=== PATIENT | female | born 1965 | race Caucasian/White ===

== ENCOUNTER 2017-06-11 17:50 | Emergency (ER) | payer MEDICAID ==
[~2017-06-11] VITALS: Ht 162.6 cm; Wt 123.4 kg
[2017-06-12 01:54] LABS: Basophils # (auto) 0 uL; Basophils % (auto) 0.5 % (0.0-2.0); Eosinophils # (auto) 0.2 uL; Eosinophils % (auto) 2.3 % (0.0-7.0); Hematocrit 46.3 % (36.0-46.0); Lymphocytes # (auto) 1.7 uL; Lymphocytes % (auto) 20.2 % (10.0-50.0); Mean Corpuscular Hemoglobin 32.9 pg (28.0-32.0); Mean Corpuscular Hgb Conc. 34.5 g/dL (32.0-36.0); Mean Corpuscular Volume 95.4 fL (80.0-100.0); Monocytes # (auto) 0.6 uL; Monocytes % (auto) 7.1 % (0.0-12.0); Neutrophils % (auto) 69.9 % (37.0-80.0); Nucleated Red Blood Cells % 0.1 %; Platelet Count (auto) 172 10^3/uL (140-450); Red Blood Cells 4.86 10^6/uL (4.0-5.20); Red Cell Distribution Width 13.7 % (11.8-14.3); White Blood Cell 8.6 10^3/uL (4.4-10.8)
[2017-06-12 02:11] LABS: Alanine Aminotransferase 34 U/L (13-56); Albumin 4.7 g/dL (3.4-5.0); Anion Gap 10 (5-15); Aspartate Aminotransferase 19 U/L (15-37); BUN/Creatinine Ratio 28.1; Blood Urea Nitrogen 18 mg/dL (7-18); Calcium 9.8 mg/dL (8.5-10.1); Carbon Dioxide 23 mmol/L (21-32); Chloride 106 mmol/L (98-107); GFR African American 125 mL/min; GFR Non-African American 103 mL/min; Glucose 110 mg/dL (74-106); Potassium 3.7 mmol/L (3.5-5.1); Sodium 139 mmol/L (136-145)
[2017-06-12 02:30] LABS: Alkaline Phosphatase 101 U/L (45-117); Bilirubin, Total 0.7 mg/dL (0.2-1.0); Total Protein 8.6 g/dL (6.4-8.2)
[2017-06-12] MEDS ORDERED: ONDANSETRON HCL 4 MG/2 ML VIAL IV ONE (04:00)
[2017-06-12] MEDS ORDERED: MORPHINE SULFATE 10 MG/ML INJ 1ML SDV IV ONE (04:00)
[2017-06-12 05:15] VITALS: BP 150/74
== END 2017-06-12 05:20 | disposition home or self-care (01) ==
LOC: ER 17:53
DX: S43.401A Unspecified sprain of right shoulder joint, initial encounter (principal); Z88.1 Allergy status to other antibiotic agents; E78.5 Hyperlipidemia, unspecified; I10 Essential (primary) hypertension; Z90.49 Acquired absence of other specified parts of digestive tract; W18.39XA Other fall on same level, initial encounter; Y93.89 Activity, other specified; Y92.89 Other specified places as the place of occurrence of the external cause; Y99.8 Other external cause status
CPT/HCPCS: 36415; 73030; 80053; 84484; 85025; 93005; 96374; 96375; 99285; J2270; J2405

== ENCOUNTER 2019-11-21 14:45 | Emergency (ER) | payer MEDICAID ==
[~2019-11-21] VITALS: Ht 162.6 cm; Wt 129.3 kg
[2019-11-21 16:03] VITALS: BP 146/78
== END 2019-11-21 16:09 | disposition home or self-care (01) ==
LOC: ER 14:45
DX: I10 Essential (primary) hypertension (principal); E78.5 Hyperlipidemia, unspecified; Z76.0 Encounter for issue of repeat prescription

== ENCOUNTER 2022-03-09 06:04 | Emergency (ER) | payer MEDICAID ==
[~2022-03-09] VITALS: Ht 160 cm; Wt 127.3 kg
[2022-03-09] MEDS ORDERED: KETOROLAC TROMETH 30 MG/ML 1ML VIAL IV ONE (09:00)
[2022-03-09] MEDS ORDERED: METOCLOPRAMIDE HCL 5MG/ml INJ 2ml VIAL IV ONE (09:00)
[2022-03-09 10:24] VITALS: BP 155/108
[2022-03-09] MEDS ORDERED: DEX4T PO (11:42)
== END 2022-03-09 11:55 | disposition left against medical advice (07) ==
LOC: ER 06:04
DX: M54.17 Radiculopathy, lumbosacral region (principal); M47.817 Spondylosis without myelopathy or radiculopathy, lumbosacral region; I10 Essential (primary) hypertension; E66.9 Obesity, unspecified; E78.5 Hyperlipidemia, unspecified; Z68.35 Body mass index [BMI] 35.0-35.9, adult; Z90.49 Acquired absence of other specified parts of digestive tract; Z88.2 Allergy status to sulfonamides
CPT/HCPCS: 72131; 73502; 96374; 96375; 99284; J1885; J2765

== ENCOUNTER 2024-07-04 08:51 | Emergency (ER) | payer MEDICAID ==
[~2024-07-04] VITALS: Ht 160 cm; Wt 110.9 kg
[~2024-07-04 08:51] MED LIST: ASPI81CH59 PO; ATOR20TA PO; AZEL0.054 OP; CHOL20007 PO; DEX4T PO; GABA-1250 PO; HYDR-4798 PO; HYDR25TA4 PO; HYDR50TA47 PO; LISI20TA56 PO; MELO15TA29 PO; METO-289 PO; OMEP-448 PO; SERT-160 PO
[2024-07-04 09:04] VITALS: BP 100/57; RESP 18; O2SAT 96
[2024-07-04 09:06] VITALS: PULSE 80
[2024-07-04 10:11] LABS: Basophils # (auto) 0 10 ^3/uL (0-0.2); Basophils % (auto) 0.4 % (0.0-2.0); Eosinophils # (auto) 0 10 ^3/uL (0-0.8); Hematocrit 45.4 % (36.0-46.0); Hemoglobin 15.8 g/dL (12.2-16.2); Lymphocytes # (auto) 1.4 10 ^3/uL (0.4-5.4); Lymphocytes % (auto) 16.7 % (10.0-50.0); Mean Corpuscular Hemoglobin 32.2 pg (28.0-32.0); Mean Corpuscular Hgb Conc. 34.8 g/dL (32.0-36.0); Mean Corpuscular Volume 92.5 fL (80.0-100.0); Monocytes # (auto) 0.4 10 ^3/uL (0-1.3); Monocytes % (auto) 4.6 % (0.0-12.0); Neutrophils # (auto) 6.8 10 ^3/uL (1.6-8.6); Neutrophils % (auto) 78.3 % (37.0-80.0); Nucleated Red Blood Cells % 0.1 %; Platelet Count (auto) 156 10^3/uL (140-450); Red Blood Cells 4.91 10^6/uL (4.0-5.20); Red Cell Distribution Width 14.3 % (11.8-14.3); White Blood Cell 8.6 10^3/uL (4.4-10.8)
[2024-07-04 10:20] LABS: Potassium 3.7 mmol/L (3.5-5.1)
[2024-07-04 10:21] LABS: Anion Gap 21 (5-15)
[2024-07-04 10:22] LABS: Calcium 8.9 mg/dL (8.7-10.4)
[2024-07-04 10:26] LABS: BUN/Creatinine Ratio 7.6 (10.0-20.0)
[2024-07-04 10:40] LABS: Blood Urea Nitrogen 73 mg/dL (9-23); Carbon Dioxide 13 mmol/L (20-31); Chloride 94 mmol/L (98-107); Glucose 145 mg/dL (74-106); Sodium 128 mmol/L (136-145)
--- NOTE | 2024-07-04 11:29 | ED.PDOC ---
GI ASSESSMENT HPI Comments 59 year old female presents to the ED with chief complaint of abdominal pain. Patient reports that she has been experiencing upper abdominal pain with associated N/V/D for the past week along with decreased urination for the past 4 days. Patient relays that she took [place] that she had at home with no relief in her pain noted. Patient denies any fever, chills, dizziness, chest pain, SOB, or dysuria. Chief Complaint: Abdominal Pain Time Seen by MD: 11:21 Primary Care Provider: bonilla Reviewed Notes: Nurses Notes, Medications, Allergies Allergies: Coded Allergies: Sulfa Antibiotics (Verified Allergy, Unknown, 04/03/16) Home Meds Active Scripts Dexamethasone (Decadron) 4 Mg Tb, 4 TAB PO b1d for 5 Days, #8 TAB Prov:SHUN GRAY MD 03/09/22 Information Source: Patient Mode of Arrival: Ambulatory Timing: Weeks Duration: Since onset Prehospital treatment: None Quality: Aching Vomitus: Watery Stool: Watery Severity: Moderate Recent: None Recent Hx of: None Pain Location: Epigastric Modifying Factors: Nothing Associated sign and symptoms: Nausea, Vomiting, Diarrhea, Abdominal Pain Past Medical History PAST MEDICAL HISTORY: Depression, High Lipids, HTN Surgical History: Cholecystectomy Surgical History (Other): Back surgery, Bilateral knee surgery, shoulder surgery EVENTS ADMINISTRATIVE ASSISTANT History: No Pertinent EVENTS ADMINISTRATIVE ASSISTANT History, Ectopic Family History Family History: Reviewed,noncontributory to illness, Unknown Social History Smoker: Non-Smoker Alcohol: Denies ETOH Use Drugs: Denies Drug Use Lives In: Home Constitutional: denies: chills, diaphoresis, fatigue, fever, malaise, sweats, weakness, others EENTM: denies: blurred vision, double vision, ear bleeding, ear discharge, ear drainage, ear pain, ear ringing, eye pain, eye redness, hearing loss, mouth pain, mouth swelling, nasal discharge, nose bleeding, nose congestion, nose pain, photophobia, tearing, throat pain, throat swelling, voice changes, others Respiratory: denies: cough, hemoptysis, orthopnea, SOB at rest, shortness of breath, SOB with excertion, stridor, wheezing, others Cardiovascular: denies: chest pain, dizzy spells, diaphoresis, Dyspnea on exertion, edema, irregular heart beat, left arm pain, lightheadedness, palpitations, PND, syncope, others Gastrointestinal: reports: abdominal pain, diarrhea, nausea, vomiting; denies: abdomen distended, blood streaked bowels, constipated, dysphagia, difficulty swallowing, hematemesis, melena, poor appetite, poor fluid intake, rectal bleeding, rectal pain, others Genitourinary: denies: abnormal vagina bleeding, burning, dyspareunia, dysuria, flank pain, frequency, hematuria, incontinence, pain, , vagina disc harge, urgency, others Neurological: denies: dizziness, fainting, headache, left sided numbness, left sided weakness, numbness, paresthesia, pre-existing deficit, right sided numbness, right sided weakness, seizure, speech problems, tingling, tremors, weakness, others Musculoskeletal: denies: back pain, gout, joint pain, joint swelling, muscle pain, muscle stiffness, neck pain, others Integumetry: denies: bruises, change in color, change in hair/nails, dryness, laceration, lesions, lumps, rash, wounds, others Allergic/Immunocompromised: denies: Difficulty Healing, Frequent Infections, Hives, Itching, others Hematologic/Lymphatic: denies: anemia, blood clots, easy bleeding, easy bruising, swollen glands, others Endocrine: denies: excessive hunger, excessive sweating, excessive thirst, excessive urination, flushing, intolerance to cold, intolerance to heat, unexplained weight gain, unexplained weight loss, others Psychiatric: denies: anxiety, bipolar disorder, depression, hopeless, panic disorder, schizophrenia, sleepless, suicidal, others All Other Systems: Reviewed and Negative Physical Exam General Appearance: No Apparent Distress, Normal HEENT: Normal ENT Inspection, PERRL/EOMI Neck: Full Range of Motion, Non-Tender, Normal, Normal Inspection Respiratory: Chest Non-Tender, Lungs Clear, No Accessory Muscle Use, No Respiratory Distress, Normal Breath Sounds Cardiovascular: No Edema, No JVD, No Murmur, No Gallop, Normal Peripheral Pulses, Regular Rate/Rhythm Breast Exam: Deferred Gastrointestinal: No Organomegaly, No Pulsatile Mass, Normal Bowel Sounds, Soft, Tenderness (Upper abdominal tenderness) Genitalia: Deferred Pelvic: Deferred Rectal: Deferred Extremities: No calf tenderness, Normal capillary refill, Normal inspection, Normal range of motion, Non-tender, No pedal edema Musculoskeletal : Apperance: Normal Neurologic: Alert, stitch bonding machine tender helper II-XII nml as Tested, No Motor Deficits, Normal Affect, Normal Mood, No Sensory Deficits Cerebellar Function: Normal Reflexes: Normal Skin: Dry, Normal Color, Warm Lymphatic: No Adenopathy Was a procedure done? Was a procedure done?: No X-Ray, Labs, Meds, VS Vital Signs Date Time Temp Pulse Resp B/P (MAP) Pulse Ox O2 Delivery O2 Flow Rate FiO2 07/04/24 09:06 80 07/04/24 09:04 98.5 83 18 100/57 (71) 96 Lab Test 07/04/24 09:51 07/04/24 09:01 Range/Units White Blood Count 8.6 4.4-10.8 10^3/uL Red Blood Count 4.91 4.0-5.20 10^6/uL Hemoglobin 15.8 12.2-16.2 g/dL Hematocrit 45.4 36.0-46.0 % Mean Corpuscular Volume 92.5 80.0-100.0 fL Mean Corpuscular Hemoglobin 32.2 H 28.0-32.0 pg Mean Corpuscular Hemoglobin Concent 34.8 32.0-36.0 g/dL Red Cell Distribution Width 14.3 11.8-14.3 % Platelet Count 156 140-450 10^3/uL Mean Platelet Volume 11.3 H 6.9-10.8 fL Neutrophils (%) (Auto) 78.3 37.0-80.0 % Lymphocytes (%) (Auto) 16.7 10.0-50.0 % Monocytes (%) (Auto) 4.6 0.0-12.0 % Eosinophils (%) (Auto) 0.0 0.0-7.0 % Basophils (%) (Auto) 0.4 0.0-2.0 % Neutrophils # (Auto) 6.8 1.6-8.6 10 ^3/uL Lymphocytes # (Auto) 1.4 0.4-5.4 10 ^3/uL Monocytes # (Auto) 0.4 0-1.3 10 ^3/uL Eosinophils # (Auto) 0 0-0.8 10 ^3/uL Basophils # (Auto) 0 0-0.2 10 ^3/uL Nucleated Red Blood Cells 0.1 % Sodium Level 128 L 136-145 mmol/L Potassium Level 3.7 3.5-5.1 mmol/L Chloride Level 94 L 98-107 mmol/L Carbon Dioxide Level 13 L 20-31 mmol/L Anion Gap 21 H 5-15 Blood Urea Nitrogen 73 H 9-23 mg/dL Creatinine 9.62 H 0.550-1.02 mg/dL Glomerular Filtration Rate Calc 4 >90 mL/min BUN/Creatinine Ratio 7.6 L 10.0-20.0 Serum Glucose 145 H 74-106 mg/dL Calcium Level 8.9 8.7-10.4 mg/dL POC Glucose 153 H 70-106 mg/dl Time of 1ST Reevaluation: 12:21 Reevaluation 1ST: Unchanged Patient Education/Counseling: Diagnosis, Treatment Family Education/Counseling: No Family Present Additional Information I reviewed the following notes from patient's past medical encounters: 03/09/22 for left hip pain The following tests were ordered, and results were reviewed by me: CBC, BMP, UA I reviewed and agreed with the following test results read by other providers: None Additional Information was gathered from interviewing the following independent historians: None I discussed treatment and results with medical personnel. Critical Care Note Critical Care Time?: No Stability Stability form required: No Heart Score Heart Score: Heart Score Response (Comments) Value History N/A 0 EKG N/A 0 Age N/A 0 Risk Factors N/A 0 Troponin N/A 0 Total 0 I personally scribed for NICANOR AMAYA MD ([email or web address]) on 07/04/24 at 11:29. Electronically submitted by Dash Billings ([email or web address]). NICANOR AMAYA MD Jul 04, 2024 11:29
[2024-07-04] MEDS ORDERED: SODIUM CHLORIDE 0.9% 1,000 ML IV ONE (14:30)
--- NOTE | 2024-07-05 01:36 | ECG ---
[facility] Test Date: 2024-07-04 Test Time: 09:06:32 Pat Name: KATHLEEN MAJOR Department: EMERGENCY Room: Gender: F Dock Attendant: : 1965 Requested By: NICANOR AMAYA Order Number: [id number] Reading MD: Measurements Intervals [place] Rate: 80 P: -80 HI: 145 QRS: 47 QRSD: 91 T: 110 QT: 380 QTc: 439 Interpretive Statements Ectopic atrial rhythm Ventricular premature complex Aberrant complex Repol abnrm suggests ischemia, lateral leads ST elevation, consider inferior injury Please click the below link to view image of tracing.
== END 2024-07-04 15:49 | disposition left against medical advice (07) ==
LOC: ER 08:51
DX: R10.10 Upper abdominal pain, unspecified (principal); R10.13 Epigastric pain; R11.2 Nausea with vomiting, unspecified; R19.7 Diarrhea, unspecified; I10 Essential (primary) hypertension; E78.5 Hyperlipidemia, unspecified; Z90.49 Acquired absence of other specified parts of digestive tract; Z88.2 Allergy status to sulfonamides
CPT/HCPCS: 36415; 80048; 82947; 82962; 85025; 93005

== ENCOUNTER 2024-07-04 21:38 | Inpatient (IN) | payer MEDICAID ==
[~2024-07-04] VITALS: Ht 160 cm; Wt 113.6 kg
--- NOTE | 2024-07-04 21:58 | ED.PDOC ---
GI ASSESSMENT HPI Comments 59 y.o female with PMHx of HTN and hyperlipidemia, presents to the ED via EMS for an initial complaint of nausea, vomiting and diarrhea that started one week ago. Per EMS, patient's family brought her into this ED earlier today to be seen but due to long wait times they LWOBS but decided to call 911 later on the day due to new onset generalized weakness. Patient reports she was unable to get herself up due to the weakness and developed generalized body aches today as well. Patient has not taken her BP medication for the past 3-4 days d/t pressure reading low at home. EMS reported blood pressure on scene as 75/45 with HR of 105. Patient denies any dysuria, hematuria, but does mention decrease urine o utput x 1 week. Patient is alert and oriented x 4. Chief Complaint: General Weakness Time Seen by MD: 21:50 Primary Care Provider: bonilla Reviewed Notes: Nurses Notes, Compensation Vice President Notes, Medications, Allergies Allergies: Coded Allergies: Sulfa Antibiotics (Verified Allergy, Unknown, 04/03/16) Home Meds Active Scripts Dexamethasone (Decadron) 4 Mg Tb, 4 TAB PO b1d for 5 Days, #8 TAB Prov:SHUN GRAY MD 03/09/22 Information Source: Patient, Emergency Med Personnel Mode of Arrival: EMS Timing: Hours Duration: Since onset Quality: None Vomitus: Hard Stool: Loose Severity: Moderate Recent: None Recent Hx of: None Pain Location: None Modifying Factors: Nothing Associated sign and symptoms: Nausea, Vomiting, Diarrhea Past Medical History PAST MEDICAL HISTORY: Depression, High Lipids, HTN Surgical History: Cholecystectomy SCOOPER History: No Pertinent SCOOPER History, Ectopic Family History Family History: Reviewed,noncontributory to illness, Unknown Social History Smoker: Non-Smoker Alcohol: Denies ETOH Use Drugs: Denies Drug Use Lives In: Home Constitutional: denies: chills, diaphoresis, fatigue, fever, malaise, sweats, weakness, others EENTM: denies: blurred vision, double vision, ear bleeding, ear discharge, ear drainage, ear pain, ear ringing, eye pain, eye redness, hearing loss, mouth pain, mouth swelling, nasal discharge, nose bleeding, nose congestion, nose pain, photophobia, tearing, throat pain, throat swelling, voice changes, others Respiratory: denies: cough, hemoptysis, orthopnea, SOB at rest, shortness of breath, SOB with excertion, stridor, wheezing, others Cardiovascular: denies: chest pain, dizzy spells, diaphoresis, Dyspnea on exertion, edema, irregular heart beat, left arm pain, lightheadedness, palpitations, PND, syncope, others Gastrointestinal: reports: diarrhea, nausea, vomiting; denies: abdomen distended, abdominal pain, blood streaked bowels, constipated, dysphagia, difficulty swallowing, hematemesis, melena, poor appetite, poor fluid intake, rectal bleeding, rectal pain, others Genitourinary: denies: abnormal vagina bleeding, burning, dyspareunia, dysuria, flank pain, frequency, hematuria, incontinence, pain, , vagina discharge, urgency, others Neurological: denies: dizziness, fainting, headache, left sided numbness, left sided weakness, numbness, paresthesia, pre-existing deficit, right sided numbness, right sided weakness, seizure, speech problems, tingling, tremors, weakness, others Musculoskeletal: denies: back pain, gout, joint pain, joint swelling, muscle pain, muscle stiffness, neck pain, others Integumetry: denies: bruises, change in color, change in hair/nails, dryness, laceration, lesions, lumps, rash, wounds, others Allergic/Immunocompromised: denies: Difficulty Healing, Frequent Infections, Hives, Itching, others Hematologic/Lymphatic: denies: anemia, blood clots, easy bleeding, easy bruising, swollen glands, others Endocrine: denies: excessive hunger, excessive sweating, excessive thirst, excessive urination, flushing, intolerance to cold, intolerance to heat, unexplained weight gain, unexplained weight loss, others Psychiatric: denies: anxiety, bipolar disorder, depression, hopeless, panic disorder, schizophrenia, sleepless, suicidal, others All Other Systems: Reviewed and Negative Physical Exam General Appearance: No Apparent Distress, Normal HEENT: Normal ENT Inspection, Pharynx Normal, TMs Normal Neck: Full Range of Motion, Non-Tender, Normal, Normal Inspection Respiratory: Chest Non-Tender, Lungs Clear, No Accessory Muscle Use, No Respiratory Distress, Normal Breath Sounds Cardiovascular: No Edema, No JVD, No Murmur, No Gallop, Normal Peripheral Pulses, Regular Rate/Rhythm Breast Exam: Deferred Gastrointestinal: No Organomegaly, Non Tender, No Pulsatile Mass, Normal Bowel Sounds, Soft Genitalia: Deferred Pelvic: Deferred Rectal: Deferred Extremities: No calf tenderness, Normal capillary refill, Normal inspection, Normal range of motion, Non-tender, No pedal edema Musculoskeletal : Apperance: Normal Neurologic: Alert, rn document improvement II-XII nml as Tested, No Motor Deficits, Normal Affect, Normal Mood, No Sensory Deficits Cerebellar Function: Normal Reflexes: Normal Skin: Dry, Normal Color, Warm Lymphatic: No Adenopathy Was a procedure done? Was a procedure done?: No GI differential Dx Differential Diagnosis: Urinary Obstruction, UTI, Dehydration, Diabetes/ DKA, Electrolyte Imbalance, Food Poisoning, Viral X-Ray, Labs, Meds, VS Vital Signs Date Time Temp Pulse Resp B/P (MAP) Pulse Ox O2 Delivery O2 Flow Rate FiO2 07/04/24 23:00 72 21 122/102 (109) 07/04/24 22:00 98.3 76 22 71/45 (54) 98 98.3 07/04/24 22:00 76 22 98 Room Air* 0 21 07/04/24 21:48 98.0 105 24 70/45 (53) 95 07/04/24 21:47 81 Lab Test 07/04/24 22:09 Range/Units White Blood Count 8.4 4.4-10.8 10^3/uL Red Blood Count 5.13 4.0-5.20 10^6/uL Hemoglobin 16.2 12.2-16.2 g/dL Hematocrit 47.5 H 36.0-46.0 % Mean Corpuscular Volume 92.5 80.0-100.0 fL Mean Corpuscular Hemoglobin 31.6 28.0-32.0 pg Mean Corpuscular Hemoglobin Concent 34.2 32.0-36.0 g/dL Red Cell Distribution Width 14.6 H 11.8-14.3 % Platelet Count 162 140-450 10^3/uL Mean Platelet Volume 10.9 H 6.9-10.8 fL Neutrophils (%) (Auto) 83.8 H 37.0-80.0 % Lymphocytes (%) (Auto) 11.4 10.0-50.0 % Monocytes (%) (Auto) 4.3 0.0-12.0 % Eosinophils (%) (Auto) 0.0 0.0-7.0 % Basophils (%) (Auto) 0.5 0.0-2.0 % Neutrophils # (Auto) 7.0 1.6-8.6 10 ^3/uL Lymphocytes # (Auto) 1.0 0.4-5.4 10 ^3/uL Monocytes # (Auto) 0.4 0-1.3 10 ^3/uL Eosinophils # (Auto) 0 0-0.8 10 ^3/uL Basophils # (Auto) 0 0-0.2 10 ^3/uL Nucleated Red Blood Cells 0.2 % Sodium Level 130 L 136-145 mmol/L Potassium Level 3.5 3.5-5.1 mmol/L Chloride Level 94 L 98-107 mmol/L Carbon Dioxide Level < 10 *L 20-31 mmol/L Anion Gap 26.32691 H 5-15 Blood Urea Nitrogen 81 *H 9-23 mg/dL Creatinine 10.63 *H 0.550-1.02 mg/dL Glomerular Filtration Rate Calc 4 >90 mL/min BUN/Creatinine Ratio 7.6 L 10.0-20.0 Serum Glucose 146 H 74-106 mg/dL Lactic Acid Level 2.1 *H 0.4-2.0 mmol/L Calcium Level 9.2 8.7-10.4 mg/dL Total Bilirubin 0.2 0.2-1.0 mg/dL Aspartate Amino Transferase (AST) 76 H 13-40 U/L Alanine Aminotransferase (ALT) 47 H 7-40 U/L Alkaline Phosphatase 75 46-116 U/L Total Protein 7.8 5.7-8.2 g/dL Albumin 5.0 H 3.2-4.8 g/dL Current Medications Medications (Trade) Dose Ordered Sig/Ralph Route Start Time Stop Time Status Last Admin Sodium Chloride 1,000 ml @ 1,000 mls/hr Q1H ONCE IV 07/04/24 22:00 07/04/24 22:59 DC 07/04/24 22:20 Ceftriaxone Sodium 50 ml @ 100 mls/hr ONCE ONCE IV 07/04/24 23:00 07/04/24 23:29 DC 07/04/24 23:02 Sodium Chloride 1,000 ml @ 125 mls/hr Q8H ONCE IV 07/04/24 23:15 07/05/24 07:14 07/04/24 23:15 Calcium Carbonate (Tums) 500 mg ONCE ONCE PO 07/04/24 23:30 07/04/24 23:31 DC 07/04/24 23:27 X-Ray, Labs, Meds, VS Comment Patient's labs show acute kidney failure Recommend nephrology consult in the morning Unable to obtain urine specimen, patient given Rocephin 1 g Pending follow up chemistry to check kidney function after 1 L bolus Blood pressure has not improved after initial NS bolus. Time of 1ST Reevaluation: 21:53 Reevaluation 1ST: Unchanged Patient Education/Counseling: Diagnosis, Treatment, Prognosis Family Education/Counseling: No Family Present Departure 1 Departure Time of Disposition: 23:53 Impression: Primary Impression: Acute kidney failure Qualified Codes: N17.9 - Acute kidney failure, unspecified Additional Impression: Septicemia Disposition: ADMITTED INPATIENT Condition: Guarded Critical Care Note Critical Care Time?: No Stability Stability form required: No I personally scribed for JUAN MANUEL ([facility]) on 07/04/24 at 21:58. Electronically submitted by Venus Caro ([facility]). JUAN MANUEL Jul 04, 2024 21:58
[2024-07-04 22:00] VITALS: PULSE 76; RESP 22; O2SAT 98
[2024-07-04] MEDS: SODIUM CHLORIDE 0.9% 1,000 ML IV ONE ×2 (22:20→23:15)
[2024-07-04 22:24] LABS: Basophils # (auto) 0 10 ^3/uL (0-0.2); Basophils % (auto) 0.5 % (0.0-2.0); Eosinophils # (auto) 0 10 ^3/uL (0-0.8); Hematocrit 47.5 % (36.0-46.0); Hemoglobin 16.2 g/dL (12.2-16.2); Lymphocytes % (auto) 11.4 % (10.0-50.0); Mean Corpuscular Hemoglobin 31.6 pg (28.0-32.0); Mean Corpuscular Hgb Conc. 34.2 g/dL (32.0-36.0); Mean Corpuscular Volume 92.5 fL (80.0-100.0); Monocytes # (auto) 0.4 10 ^3/uL (0-1.3); Monocytes % (auto) 4.3 % (0.0-12.0); Neutrophils % (auto) 83.8 % (37.0-80.0); Nucleated Red Blood Cells % 0.2 %; Platelet Count (auto) 162 10^3/uL (140-450); Red Blood Cells 5.13 10^6/uL (4.0-5.20); Red Cell Distribution Width 14.6 % (11.8-14.3); White Blood Cell 8.4 10^3/uL (4.4-10.8)
[2024-07-04 22:45] LABS: Alkaline Phosphatase 75 U/L (46-116); Anion Gap 26.00001 (5-15); BUN/Creatinine Ratio 7.6 (10.0-20.0); Calcium 9.2 mg/dL (8.7-10.4); Potassium 3.5 mmol/L (3.5-5.1)
[2024-07-04 22:46] LABS: Total Protein 7.8 g/dL (5.7-8.2)
[2024-07-04 22:47] LABS: Alanine Aminotransferase 47 U/L (7-40); Aspartate Aminotransferase 76 U/L (13-40); Bilirubin, Total 0.2 mg/dL (0.2-1.0); Chloride 94 mmol/L (98-107); Glucose 146 mg/dL (74-106); Lactic Acid w/Reflex 2.1 mmol/L (0.4-2.0); Sodium 130 mmol/L (136-145)
[2024-07-04 22:49] LABS: Blood Urea Nitrogen 81 mg/dL (9-23); Carbon Dioxide < 10 mmol/L (20-31)
[2024-07-04] MEDS: cefTRIAXone 1GM/50ML D5W 50 ML IV ONE (23:02)
[2024-07-04] MEDS: CALCIUM CARB 500 MG CHEW TAB PO ONE (23:27)
[2024-07-05] VITALS (59 sets, daily range): BP systolic 58–139; BP diastolic 25–73; PULSE 64–95; RESP 15–30; TEMP 98–98.3; O2SAT 88–97
[2024-07-05 00:43] LABS: Albumin 4.3 g/dL (3.2-4.8); Alkaline Phosphatase 64 U/L (46-116); Anion Gap 23 (5-15); BUN/Creatinine Ratio 7.8 (10.0-20.0)
[2024-07-05 00:44] LABS: Total Protein 6.8 g/dL (5.7-8.2)
[2024-07-05 00:48] LABS: Alanine Aminotransferase 41 U/L (7-40); Aspartate Aminotransferase 71 U/L (13-40); Bilirubin, Total < 0.2 mg/dL (0.2-1.0); Calcium 8.2 mg/dL (8.7-10.4); Carbon Dioxide 11 mmol/L (20-31); Chloride 97 mmol/L (98-107); Glucose 120 mg/dL (74-106); Sodium 131 mmol/L (136-145)
[2024-07-05] MEDS: PHENYLEPHRINE IV 250 ML IV SCH (00:50)
[2024-07-05 00:51] LABS: Blood Urea Nitrogen 80 mg/dL (9-23)
[2024-07-05] MEDS: SODIUM BICARB 8.4% 50Meq/50ml SYR Vial IV ONE (00:53)
[2024-07-05 00:57] LABS: Base Excess -14.5 mmol/L (-2.0-3.0)
--- NOTE | 2024-07-05 02:00 | DVH ---
Exam: CT CT AB PEL WO CON-NO ORAL OR IV History: flank pain Comparison Study: None Technique: Multidetector spiral CT of the abdomen was performed from lung bases to pubic symphysis. Imaging was performed without IV contrast. Axial, coronal and sagittal multiplanar reformats were ob tained from the axial data set by the technologist. Radiation Dose : 1. Abdomen/Pelvis: CTDIvol 26.4 mGy, DLP 1490 mGy*cm. Findings: Evaluation of solid organs is limited due to lack of intravenous contrast use. Lung Bases: Multifocal pneumonia throughout both lungs. Liver: The liver is normal in size. No focal lesions. Gallbladder and Biliary Tree: Unremarkable Spleen: Unremarkable Pancreas: The pancreas is grossly normal in appearance. Adrenal Glands: Unremarkable Kidneys: Kidneys are grossly normal without calculi or hydronephrosis. Bladder: Grossly unremarkable for degree of distention. Bowel: The stomach is grossly normal in appearance. Small bowel and colon are normal in caliber and d istribution. Normal appendix is visualized in the right lower quadrant without findings of appendici tis. Ascites: Absent Lymphadenopathy: No mesenteric, retroperitoneal or periportal lymphadenopathy. Abdominal Wall and Mesentery: Trace fat containing umbilical hernia.. Vasculature: The visualized abdominal aorta is normal in size and caliber. Evaluation of abdominal a nd pelvic vessels is limited due to lack of intravenous contrast. Pelvic Organs: Collapsed around a Abdullahi catheter. Musculoskeletal: No aggressive focal bony lesions, acute fractures or dislocation. Moderate degenerat sheela changes throughout the lumbar spine. IMPRESSION: 1. No acute abdominal or pelvic findings. Radiation optimization: All CT scans at this facility use at least one of these dose optimization caleb hniques: automated exposure control mA and/or kV adjustment per patient size (includes targeted exam s where dose is matched to clinical indication) or iterative reconstruction.
[2024-07-05 03:04] LABS: Urine Bacteria None Seen /hpf (None Seen)
[2024-07-05 03:34] LABS: Urine Blood 2+ /uL (Negative); Urine Clarity Ex.Turbid (Clear); Urine Color Yellow (Yellow); Urine Hyaline Cast MOD /lpf (0 - 2); Urine Mucus FEW (None Seen); Urine Protein, UAD 2+ (Negative); Urine Specific Gravity 1.021 (1.001-1.035); Urine Squamous Epithelial Cell FEW /hpf (<5); Urine Urobilinogen Normal (Negative); Urine WBC 42 /HPF (0-5); Urine pH 5.5 (5.0-9.0)
[2024-07-05] MEDS: SODIUM CHLORIDE 0.9% 1,000 ML IV ONE ×3 (04:38→18:25)
[2024-07-05] MEDS ORDERED: ONDANSETRON HCL 4 MG/2 ML VIAL IV PRN (04:45)
--- NOTE | 2024-07-05 04:53 | DVHHP2 ---
History of Present Illness Reason for Visit: Nausea and vomiting History of Present Illness 59-year-old female presents evaluation a one-week history of nausea vomiting and diarrhea. Patient reports worsening fatigue with generalized weakness she also reports decreased urine output. On arrival patient's blood pressure was in the 70s. Reports generalized body aches as well. No chest pain or palpitations. No shortness a breath. Past Medical History Hypertension, dyslipidemia and depression Past Surgical History Cholecystectomy Family History Noncontributory Smoke: No ALCOHOL: none Drugs: None Lives: with Family Review of Systems Review of Systems Review of systems are currently negative otherwise addressed in HPI. Allergies: Coded Allergies: Sulfa Antibiotics (Verified Allergy, Unknown, 04/03/16) Medications Current Medications Medications Dose Ordered Sig/Ralph Route Start Time Stop Time Status Last Admin Dose Admin Phenylephrine HCl 250 ml @ 30 mls/hr Q8H20M IV 07/05/24 00:15 07/05/24 00:50 30 MLS/HR Ceftriaxone Sodium 50 ml @ 100 mls/hr Q24H IV 07/05/24 23:00 Metronidazole 100 ml @ 100 mls/hr Q8HR IV 07/05/24 06:00 Exam Vital Signs Vital Signs Date Time Temp Pulse Resp B/P (MAP) Pulse Ox O2 Delivery O2 Flow Rate FiO2 07/05/24 04:30 72 19 94/45 (61) 93 07/04/24 22:00 98.3 98.3 07/04/24 22:00 Room Air* 0 21 Exam Gen: 59-year-old female in moderate distress, obese Skin: Warm, dry, normal color and texture, no rash. HEENT: Normocephalic atraumatic, mucous membranes moist and pink. Neck: Cervical and supraclavicular nodes normal without enlargement, trachea is midline, thyroid gland is normal without masses. Pulmonary: Clear to auscultation and percussion bilaterally. Cardiac: Regular rate and rhythm. No murmur Abdomen: Soft, nontender, nondistended, bowel sounds present all 4 quadrants, no guarding, no rigidity, no organomegaly. Extremities: No cyanosis, clubbing, no edema Neuro: Cranial nerves II through XII grossly intact, normal affect and speech, no focal motor deficits. Labs/Xrays ORDERING PHYSICIAN: JUAN MANUEL PROCEDURE(s): ABPL - CT AB PEL WO CON-NO ORAL OR IV REASON: flank pain ORDER NUMBER(s): [id number], ACCESSION NUMBER(s): [id number] Exam: CT CT AB PEL WO CON-NO ORAL OR IV History: flank pain Comparison Study: None Technique: Multidetector spiral CT of the abdomen was performed from lung bases to pubic symphysis. Imaging was performed without IV contrast. Axial, coronal and sagittal multiplanar reformats were obtained from the axial data set by the technologist. Radiation Dose : 1. Abdomen/Pelvis: CTDIvol 26.4 mGy, DLP 1490 mGy*cm. Findings: Evaluation of solid organs is limited due to lack of intravenous contrast use. Lung Bases: Multifocal pneumonia throughout both lungs. Liver: The liver is normal in size. No focal lesions. Gallbladder and Biliary Tree: Unremarkable Spleen: Unremarkable Pancreas: The pancreas is grossly normal in appearance. Adrenal Glands: Unremarkable Kidneys: Kidneys are grossly normal without calculi or hydronephrosis. Bladder: Grossly unremarkable for degree of distention. Bowel: The stomach is grossly normal in appearance. Small bowel and colon are normal in caliber and distribution. Normal appendix is visualized in the right lower quadrant without findings of appendicitis. Ascites: Absent Lymphadenopathy: No mesenteric, retroperitoneal or periportal lymphadenopathy. Abdominal Wall and Mesentery: Trace fat containing umbilical hernia.. Vasculature: The visualized abdominal aorta is normal in size and caliber. Evaluation of abdominal and pelvic vessels is limited due to lack of intravenous contrast. Pelvic Organs: Collapsed around a Abdullahi catheter. Musculoskeletal: No aggressive focal bony lesions, acute fractures or dislocatio n. Moderate degenerative changes throughout the lumbar spine. IMPRESSION: 1. No acute abdominal or pelvic findings. Radiation optimization: All CT scans at this facility use at least one of these dose optimization techniques: automated exposure control mA and/or kV adjustment per patient size (includes targeted exams where dose is matched to clinical indication) or iterative reconstruction. Labs Test 07/05/24 04:19 07/05/24 03:00 07/05/24 00:44 07/05/24 00:17 Range/Units Urine Color Yellow Yellow Urine Clarity Ex.turbid Clear Urine pH 5.5 5.0-9.0 Urine Specific [place] 1.021 1.001-1.035 Urine Protein 2+ H Negative Urine Ketones Negative Negative Urine Blood 2+ H Negative /uL Urine Nitrite Negative Negative Urine Bilirubin Negative Negative Urine Urobilinogen Normal Negative mg/dL Urine Leukocyte Esterase Negative Negative /uL Urine RBC 32 0 - 4 /hpf Urine Microscopic WBC 42 H 0-5 /HPF Urine Squamous Epithelial Cells Few <5 /hpf Urine Bacteria None seen None Seen /hpf Urine Hyaline Casts Mod 0 - 2 /lpf Urine Granular Casts Mod 0 /lpf Urine Mucus Few None Seen Urine Glucose Trace Normal mg/dL Blood Gas Specimen Type Arterial Blood Gas Sample Site Right radial Blood Gas Patient Temperature 37.0 Arterial Blood Date Drawn [id number] Arterial Blood pH 7.313 L 7.350-7.450 Arterial Blood Partial Pressure CO2 18.1 *L 32.0-45.0 mmHg Arterial Blood Partial Pressure O2 85.6 83.0-108.0 mmHg Arterial Blood HCO3 9.0 L 21.0-28.0 mmol/L Arterial Blood Oxygen Saturation 94.5 94.0-98.0 % Arterial Blood Base Excess -14.5 L -2.0-3.0 mmol/L Arterial Blood Oxyhemoglobin 93.8 L 94.0-98.0 % Arterial Blood Carboxyhemoglobin 0.4 L 0.5-1.5 % Arterial Blood Methemoglobin 0.3 0.0-1.5 % Connor Test Yes Blood Gas Total Hemoglobin 14.80 12.0-16.0 g/dL Blood Gas Liter Flow 2.00 Blood Gas Modality Nasal cannula FiO2 % 28.0 Blood Gas Critical Value Read Back Yes Blood Gas Notified Whom elizabeth Thomason Blood Gas Notified Time [id number] Blood Gas Notified By Electronic Scanner Operator regan mcnally Sodium Level 131 L 136-145 mmol/L Potassium Level 4.0 3.5-5.1 mmol/L Chloride Level 97 L 98-107 mmol/L Carbon Dioxide Level 11 L 20-31 mmol/L Anion Gap 23 H 5-15 Blood Urea Nitrogen 80 *H 9-23 mg/dL Creatinine 10.25 *H 0.550-1.02 mg/dL Glomerular Filtration Rate Calc 4 >90 mL/min BUN/Creatinine Ratio 7.8 L 10.0-20.0 Serum Glucose 120 H 74-106 mg/dL Lactic Acid Level 1.3 0.4-2.0 mmol/L Calcium Level 8.2 L 8.7-10.4 mg/dL Total Bilirubin < 0.2 L 0.2-1.0 mg/dL Aspartate Amino Transferase (AST) 71 H 13-40 U/L Alanine Aminotransferase (ALT) 41 H 7-40 U/L Alkaline Phosphatase 64 46-116 U/L Creatine Kinase 493 H 34-145 U/L Total Protein 6.8 5.7-8.2 g/dL Albumin 4.3 3.2-4.8 g/dL Test 07/04/24 22:09 Range/Units White Blood Count 8.4 4.4-10.8 10^3/uL Red Blood Count 5.13 4.0-5.20 10^6/uL Hemoglobin 16.2 12.2-16.2 g/dL Hematocrit 47.5 H 36.0-46.0 % Mean Corpuscular Volume 92.5 80.0-100.0 fL Mean Corpuscular Hemoglobin 31.6 28.0-32.0 pg Mean Corpuscular Hemoglobin Concent 34.2 32.0-36.0 g/dL Red Cell Distribution Width 14.6 H 11.8-14.3 % Platelet Count 162 140-450 10^3/uL Mean Platelet Volume 10.9 H 6.9-10.8 fL Neutrophils (%) (Auto) 83.8 H 37.0-80.0 % Lymphocytes (%) (Auto) 11.4 10.0-50.0 % Monocytes (%) (Auto) 4.3 0.0-12.0 % Eosinophils (%) (Auto) 0.0 0.0-7.0 % Basophils (%) (Auto) 0.5 0.0-2.0 % Neutrophils # (Auto) 7.0 1.6-8.6 10 ^3/uL Lymphocytes # (Auto) 1.0 0.4-5.4 10 ^3/uL Monocytes # (Auto) 0.4 0-1.3 10 ^3/uL Eosinophils # (Auto) 0 0-0.8 10 ^3/uL Basophils # (Auto) 0 0-0.2 10 ^3/uL Nucleated Red Blood Cells 0.2 % Assessment/Plan Assessment/Plan Assessment Acute renal failure Possible rhabdomyolysis Sepsis Mild troponin elevation, demand ischemia Plan Admit the patient to telemetry to the hospitalist Nephrology consultation Echocardiogram pending Kidney ultrasound pending Resume home medications Continue treatment per orders. Total critical care time excluding procedures performed this 50 minutes. Plan discussed with: Patient My Orders Orders - PADMA ROE Procedure Category Date Status Time Admit ADMIT 07/04/24 Transmitted 23:56 Phenylephrine Iv PHA 07/05/24 In Process (Phenylephrine/Ns) 00:15 Transfer Orders XFER 07/05/24 Transmitted 00:15 Ceftriaxone 1gm/50ml PHA 07/05/24 In Process D5w (Rocephin) 23:00 Metronidazole PHA 07/05/24 In Process 500mg/100ml (Flagyl 06:00 Chest Xray 1 View XY 07/05/24 Taken 03:58 Sodium Chloride 0.9% PHA 07/05/24 In Process 04:00 B-Type Natriuretic LAB 07/05/24 In Process Peptide 03:58 Troponin-I Hs LAB 07/05/24 In Process 04:58 Troponin-I Hs LAB 07/05/24 Logged 06:58 Stool Bacterial HERVE 07/05/24 Logged Culture 04:07 Clostridium Difficile HERVE 07/05/24 Logged Toxin 04:07 Kidney US 07/05/24 Logged 04:18 *Dr. [facility] CONS 07/05/24 Transmitted -[place] 04:18 Echo 2d Mode Cardiac US 07/05/24 Logged DOP 04:18 Date of Service: Jul 04, 2024 Billing Provider: PADMA ROE Common Visit Codes: 13400-[id number] CARE 30-74 MIN PADMA ROE Jul 05, 2024 04:53
--- NOTE | 2024-07-05 05:01 | DVH ---
CHEST RADIOGRAPH Indication: sob Technique: Single frontal view of the chest was obtained Comparison: None FINDINGS: Lines and Tubes: None Lungs: Left basilar opacity noted. Pleura: No effusion. No pneumothorax. Cardiomediastinal contours: Unremarkable Bones: No acute osseous abnormality. IMPRESSION: 1. Left basilar opacity which may reflect atelectasis or pneumonia.
--- NOTE | 2024-07-05 07:19 | DVH ---
INDICATION: Renal failure TECHNIQUE: Multiple real-time sonographic images of the kidneys and bladder were obtained. COMPARISON: None FINDINGS: The right kidney measures 10 cm in length, which is normal in size. There is normal echogenicity of t he right kidney. No hydronephrosis. The left kidney measures 11 cm in length, which is normal in size. There is normal echogenicity of th e left kidney. No hydronephrosis. No large intraluminal masses are seen in the bladder. IMPRESSION: 1. Normal sonographic appearance of the kidneys. No hydronephrosis.
[2024-07-05] MEDS: ASPirin 81 mg TAB PO SCH (09:20)
[2024-07-05] MEDS: ACETAMINOPHEN 325 MG TAB PO PRN (09:21)
--- NOTE | 2024-07-05 10:06 | ECG ---
[facility] Test Date: 2024-07-04 Test Time: 21:47:33 Pat Name: KATHLEEN MAJOR Department: ER Room: [address] [place] [address] Gender: F Ware[employer] Order Puller: MELLISA : 1965 Requested By: JUAN MANUEL Order Number: [id number] Reading MD: Thad Sheridan Measurements Intervals [place] Rate: 81 P: -45 NH: 143 QRS: 49 QRSD: 98 T: 144 QT: 396 QTc: 460 Interpretive Statements Sinus or ectopic atrial rhythm Repol abnrm suggests ischemia, lateral leads Baseline wander in lead(s) I,III,aVL Electronically Signed On 07-07-2024 10:49:08 PST by Thad Sheridan Please click the below link to view image of tracing.
--- NOTE | 2024-07-05 10:10 | DVHINCON2 ---
Date of service: Jul 05, 2024 Referring Physician Sanket Gonzalez, nurse practitioner Reason for Consultation Acute kidney injury History of Present Illness Patient is 59-year-old female obese with past medical history significant for Depression, High Lipids, and HTN is admitted for generalized weakness associated with nausea vomiting and diarrhea for one-week. On admission patient found to have elevated BUN and creatinine nephrology is consulted for acute Past Medical History PAST MEDICAL HISTORY: Depression, High Lipids, HTN Past Surgical History Surgical History: Cholecystectomy Allergies: Coded Allergies: Sulfa Antibiotics (Verified Allergy, Unknown, 04/03/16) Home Meds Active Scripts Dexamethasone (Decadron) 4 Mg Tb, 4 TAB PO b1d for 5 Days, #8 TAB Prov:SHUN GRAY MD 03/09/22 Current Medications Current Medications Medications (Trade) Dose Ordered Sig/Ralph Route PRN Reason Start Time Stop Time Status Last Admin Phenylephrine HCl 250 ml @ 30 mls/hr Q8H20M IV 07/05/24 00:15 07/05/24 08:12 Ceftriaxone Sodium 50 ml @ 100 mls/hr Q24H IV 07/05/24 23:00 Metronidazole 100 ml @ 100 mls/hr Q8HR IV 07/05/24 06:00 Ondansetron HCl (Zofran) 4 mg Q4HP PRN IV NAUSEA / VOMITING 07/05/24 04:45 07/05/24 13:58 DC Acetaminophen (Tylenol Tablet) 650 mg Q6HP PRN PO PAIN SCALE 1-3 OR TEMP>100.4 07/05/24 04:45 07/05/24 13:31 DC 07/05/24 09:21 Atorvastatin Calcium (Lipitor) 20 mg HS PO 07/05/24 22:00 Aspirin 162 mg DAILY PO 07/05/24 10:00 07/05/24 09:20 Sodium Bicarbonate 100 ml/Sodium Chloride 1,100 ml @ 120 mls/hr Q9H10M IV 07/05/24 10:00 07/05/24 11:56 Morphine Sulfate 1 mg Q4HPRN PRN IV SEVERE PAIN (7-10 PAIN SCALE) 07/05/24 13:30 Acetaminophen/ Hydrocodone Bitart ([place] 5/325MG Tab) 1 tab Q6HPRN PRN PO MODERATE PAIN (4-6 PAIN SCALE) 07/05/24 13:30 Ondansetron HCl (Zofran) 4 mg Q6HP PRN IV NAUSEA / VOMITING 07/05/24 13:30 Albuterol (Ventolin Medneb) 2.5 mg Q4HPRN PRN NEB SHORTNESS OF BREATH 07/05/24 13:30 Ipratropium Closplint (Atrovent Medneb) 0.5 mg Q4HPRN PRN NEB SHORTNESS OF BREATH 07/05/24 13:30 Review of Systems All 12 item review of systems reviewed with the patient nonsignificant except what is mentioned in the history of present illness H&P Exam Vital Signs/I&O Vital Sign Date Time Temp Pulse Resp B/P (MAP) Pulse Ox O2 Delivery O2 Flow Rate FiO2 07/05/24 14:59 68 20 94 21 07/05/24 12:15 102/59 (73) 07/05/24 12:00 Room Air* 0 07/05/24 05:45 98.0 98.0 Intake and Output 07/04/24 07/05/24 18:59 06:59 Intake Total 1734.999 ml Output Total 50 ml Balance 1684.999 ml Intake Oral 100 ml IV Total 1634.999 ml Output Urine Total 50 ml # Bowel Movements 1 Physical Exam Obese female appeared in no acute distress Lungs clear to auscultation bilaterally Cardiac exam regular rate and rhythm GI bowel sounds are present Abdullahi catheter Extremities no clubbing cyanosis or edema Neuro nonfocal Labs/Diagnostic Data Labs/Diagnostic Data Laboratory Tests Test 07/05/24 13:41 07/05/24 12:05 07/05/24 10:30 07/05/24 06:12 Range/Units Influenza Type A Antigen Negative Negative Influenza Type B Antigen Negative Negative SARS-CoV-2 Antigen (Rapid) Negative NEGATIVE Urine Color Colorless Yellow Urine Clarity Turbid H Clear Urine pH 5.5 5.0-9.0 Urine Specific [place] 1.014 1.001-1.035 Urine Protein 1+ H Negative Urine Ketones Negative Negative Urine Blood 2+ H Negative /uL Urine Nitrite Negative Negative Urine Bilirubin Negative Negative Urine Urobilinogen Normal Negative mg/dL Urine Leukocyte Esterase Negative Negative /uL Urine RBC 25 0 - 4 /hpf Urine Microscopic WBC 14 H 0-5 /HPF Urine Squamous Epithelial Cells Few <5 /hpf Urine Bacteria Few H None Seen /hpf Urine Mucus Few None Seen Urine Yeast (Budding) Occasional None Seen /hpf Urine Glucose Normal Normal mg/dL Uric Acid 13.0 H 3.1-7.8 mg/dL Phosphorus Level 12.7 H 2.4-5.1 mg/dL Magnesium Level 1.5 L 1.6-2.6 mg/dL Creatine Kinase 530 H 34-145 U/L Troponin I High Sensitivity 68 *H </=34 ng/L Test 07/05/24 04:19 07/05/24 04:14 07/05/24 03:00 07/05/24 00:44 Range/Units Troponin I High Sensitivity 71 *H </=34 ng/L B-Type Natriuretic Peptide 56.60 0-100 pg/mL Vitamin D 25-Hydroxy 34.0 30.0-100 ng/mL Parathyroid Hormone (Intact) 298.7 H 18.4-80.1 pg/mL Hepatitis B Surface Antigen Negative Negative Hepatitis C Antibody Negative Negative Lipase 69 H 12-53 U/L Urine Color Yellow Yellow Urine Clarity Ex.turbid Clear Urine pH 5.5 5.0-9.0 Urine Specific [place] 1.021 1.001-1.035 Urine Protein 2+ H Negative Urine Ketones Negative Negative Urine Blood 2+ H Negative /uL Urine Nitrite Negative Negative Urine Bilirubin Negative Negative Urine Urobilinogen Normal Negative mg/dL Urine Leukocyte Esterase Negative Negative /uL Urine RBC 32 0 - 4 /hpf Urine Microscopic WBC 42 H 0-5 /HPF Urine Squamous Epithelial Cells Few <5 /hpf Urine Bacteria None seen None Seen /hpf Urine Hyaline Casts Mod 0 - 2 /lpf Urine Granular Casts Mod 0 /lpf Urine Mucus Few None Seen Urine Glucose Trace Normal mg/dL Blood Gas Specimen Type Arterial Blood Gas Sample Site Right radial Blood Gas Patient Temperature 37.0 Arterial Blood Date Drawn [id number] Arterial Blood pH 7.313 L 7.350-7.450 Arterial Blood Partial Pressure CO2 18.1 *L 32.0-45.0 mmHg Arterial Blood Partial Pressure O2 85.6 83.0-108.0 mmHg Arterial Blood HCO3 9.0 L 21.0-28.0 mmol/L Arterial Blood Oxygen Saturation 94.5 94.0-98.0 % Arterial Blood Base Excess -14.5 L -2.0-3.0 mmol/L Arterial Blood Oxyhemoglobin 93.8 L 94.0-98.0 % Arterial Blood Carboxyhemoglobin 0.4 L 0.5-1.5 % Arterial Blood Methemoglobin 0.3 0.0-1.5 % Connor Test Yes Blood Gas Total Hemoglobin 14.80 12.0-16.0 g/dL Blood Gas Liter Flow 2.00 Blood Gas Modality Nasal cannula FiO2 % 28.0 Blood Gas Critical Value Read Back Yes Blood Gas Notified Whom elizabeth Thomason Blood Gas Notified Time [id number] Blood Gas Notified By Manager Branch regan mcnally Test 07/05/24 00:17 07/04/24 22:09 Range/Units Sodium Level 131 L 130 L 136-145 mmol/L Potassium Level 4.0 3.5 3.5-5.1 mmol/L Chloride Level 97 L 94 L 98-107 mmol/L Carbon Dioxide Level 11 L < 10 *L 20-31 mmol/L Anion Gap 23 H 26.25208 H 5-15 Blood Urea Nitrogen 80 *H 81 *H 9-23 mg/dL Creatinine 10.25 *H 10.63 *H 0.550-1.02 mg/dL Glomerular Filtration Rate Calc 4 4 >90 mL/min BUN/Creatinine Ratio 7.8 L 7.6 L 10.0-20.0 Serum Glucose 120 H 146 H 74-106 mg/dL Lactic Acid Level 1.3 2.1 *H 0.4-2.0 mmol/L Calcium Level 8.2 L 9.2 8.7-10.4 mg/dL Total Bilirubin < 0.2 L 0.2 0.2-1.0 mg/dL Aspartate Amino Transferase (AST) 71 H 76 H 13-40 U/L Alanine Aminotransferase (ALT) 41 H 47 H 7-40 U/L Alkaline Phosphatase 64 75 46-116 U/L Creatine Kinase 493 H 34-145 U/L Troponin I High Sensitivity 72 *H </=34 ng/L Total Protein 6.8 7.8 5.7-8.2 g/dL Albumin 4.3 5.0 H 3.2-4.8 g/dL White Blood Count 8.4 4.4-10.8 10^3/uL Red Blood Count 5.13 4.0-5.20 10^6/uL Hemoglobin 16.2 12.2-16.2 g/dL Hematocrit 47.5 H 36.0-46.0 % Mean Corpuscular Volume 92.5 80.0-100.0 fL Mean Corpuscular Hemoglobin 31.6 28.0-32.0 pg Mean Corpuscular Hemoglobin Concent 34.2 32.0-36.0 g/dL Red Cell Distribution Width 14.6 H 11.8-14.3 % Platelet Count 162 140-450 10^3/uL Mean Platelet Volume 10.9 H 6.9-10.8 fL Neutrophils (%) (Auto) 83.8 H 37.0-80.0 % Lymphocytes (%) (Auto) 11.4 10.0-50.0 % Monocytes (%) (Auto) 4.3 0.0-12.0 % Eosinophils (%) (Auto) 0.0 0.0-7.0 % Basophils (%) (Auto) 0.5 0.0-2.0 % Neutrophils # (Auto) 7.0 1.6-8.6 10 ^3/uL Lymphocytes # (Auto) 1.0 0.4-5.4 10 ^3/uL Monocytes # (Auto) 0.4 0-1.3 10 ^3/uL Eosinophils # (Auto) 0 0-0.8 10 ^3/uL Basophils # (Auto) 0 0-0.2 10 ^3/uL Nucleated Red Blood Cells 0.2 % Assessment Acute kidney injury superimposed Chronic Kidney Disease secondary hemodynamic mediated Elevated troponin Diarrheal NS Metabolic acidosis Dehydration Transaminitis Hemoconcentration Recommendations Closely monitor fluid and electrolytes Avoid nephrotoxic medications Abdullahi catheter Strict I&Os IVF half NS with 100 mEq sodium bicarb at 120 cc/hour Check ESTUARDO, Anca panel, C3, C4, RPR HCV and hep B surface antigen Check urine electrolytes and urine protein excretion Kidney ultrasound reported within normal limit Cardiology consult We will continue to follow Patient seen and examined by myself in the ER bed two. I discussed my plan of c are with the patient and primary nurse at the bedside I would like to thank Sanket for the consult, will follow up Plan discussed with: Patient SHANDA AVENDANO MD Jul 05, 2024 10:10
[2024-07-05 11:41] LABS: Magnesium 1.5 mg/dL (1.6-2.6); Phosphorus 12.7 mg/dL (2.4-5.1)
[2024-07-05 11:46] LABS: Urine Bacteria FEW /hpf (None Seen); Urine Blood 2+ /uL (Negative); Urine Budding Yeast OCCASIONAL /hpf (None Seen); Urine Clarity Turbid (Clear); Urine Color Colorless (Yellow); Urine Mucus FEW (None Seen); Urine Protein, UAD 1+ (Negative); Urine Specific Gravity 1.014 (1.001-1.035); Urine Squamous Epithelial Cell FEW /hpf (<5); Urine Urobilinogen Normal (Negative); Urine WBC 14 /HPF (0-5); Urine pH 5.5 (5.0-9.0)
[2024-07-05 11:53] LABS: Hepatitis B Surface Antigen Negative (Negative); Hepatitis C Antibody Negative (Negative)
[2024-07-05] MEDS: SODIUM BICARB 50mEq/50ml Vial 100 ML in SOD CHL 0.45% 1,000 ML IV SCH (11:56)
--- NOTE | 2024-07-05 12:07 | DVHSR ---
APPROVED REPORT EXAM: LIMITED Two-dimensional and M-mode echocardiogram with Doppler and color Doppler. Blood Pressure: 105/48 mmHg INDICATION ef RISK FACTORS Obesity: Height: 5'3, Weight: 250 DIMENSIONS LVDd4.5 (3.8-5.7cm)LA (2D)4.4 (1.9-4.0cm)Aortic Root2.9 (2.0-3.7cm) LVDs3.2 (2.5-4.0cm)LA (MM) (1.9-4.0cm)Aortic Cusp Exc1.8 (1.5-2.0cm) EF (%) 54.0 (55-70%)Rt. Atrium (1.9-4.0cm)Asc. Aorta cm IVSd1.2 (0.7-1.1cm)RV (D) (1.8-2.4cm) PWd1.2 (0.7-1.1cm) Mitral Valve MitralMitral Stenosis E wave0.63m/sMV Mean GR.mmHg A wave0.61m/sMV Peak GR.mmHg E/A ratio1.02D MVAcm2 DECEL [id number] 1/2 Timems Aortic Valve Aortic ValveAortic Stenosis V1m/Delio Mean GR.7mmHg V21.80m/Delio Peak GR.13mmHg LVOT Diameter2.0 (1.8-2.4cm)Doppler AVAcm2 Pulmonic Valve V21.76m/s Other Information Quality : Technically LimitedRhythm : Technically limited study due to pt laying completely flat unable to move Conclusion borderline uninterpretable study lvef > 50% cannot be more accurate RV not well seen pericardial fat pad noted valves not assessed
[2024-07-05] MEDS ORDERED: ALBUTEROL SULF 2.5 MG/0.5ML(0.5%) NEB SOLN NEB PRN (13:30)
[2024-07-05] MEDS ORDERED: IPRATROPIUM BROM 0.5 MG/2.5ML INH SOL NEB PRN (13:30)
--- NOTE | 2024-07-05 13:41 | DVHPN2 ---
Subjective Patient reports that she has not urinated in a week and has had persistent nausea, vomiting, diarrhea for proximally the same duration. Now continues to report having generalized weakness. Nausea and vomiting has resolved. Reviewed: Care Plan, H&P, Labs, Medications, Previous Orders Changes from previous H/P or p: No Changes General: Per HPI Objective Vitals Vital Signs Date Time Temp Pulse Resp B/P (MAP) Pulse Ox O2 Delivery O2 Flow Rate FiO2 07/05/24 12:15 69 22 102/59 (73) 93 07/05/24 12:00 Room Air* 0 21 07/05/24 05:45 98.0 98.0 Intake/Output Intake and Output 07/05/24 07:00 Intake Total 1869.999 ml Output Total 50 ml Balance 1819.999 ml Intake Oral 100 ml IV Total 1769.999 ml Output Urine Total 50 ml # Bowel Movements 1 General Appearance: Alert, Oriented X3, Cooperative, moderate distress HEENT: Atraumatic, PERRLA Lungs: Clear to auscultation, Normal air movement Cardiovascular: Normal S1, Normal S2 Abdomen: Normal bowel sounds, Soft Genitourinary: No Apparent Abnormalities (Abdullahi catheter) Musculoskeletal: Normal sensory function, Normal motor function Neuro: Normal gait, Normal speech Psych/Mental Status: Mental status NL, Mood NL Medications Current Medications Medications Dose Ordered Sig/Ralph Route Start Time Stop Time Status Last Admin Dose Admin Phenylephrine HCl 250 ml @ 30 mls/hr Q8H20M IV 07/05/24 00:15 07/05/24 08:12 135 MLS/HR Ceftriaxone Sodium 50 ml @ 100 mls/hr Q24H IV 07/05/24 23:00 Metronidazole 100 ml @ 100 mls/hr Q8HR IV 07/05/24 06:00 Ondansetron HCl 4 mg Q4HP PRN IV 07/05/24 04:45 Atorvastatin Calcium 20 mg HS PO 07/05/24 22:00 Aspirin 162 mg DAILY PO 07/05/24 10:00 07/05/24 09:20 162 MG Sodium Bicarbonate 100 ml/Sodium Chloride 1,100 ml @ 120 mls/hr Q9H10M IV 07/05/24 10:00 07/05/24 11:56 120 MLS/HR Morphine Sulfate 1 mg Q4HPRN PRN IV 07/05/24 13:30 UNV Acetaminophen/ Hydrocodone Bitart 1 tab Q6HPRN PRN PO 07/05/24 13:30 UNV Ondansetron HCl 4 mg Q6HP PRN IV 07/05/24 13:30 UNV Albuterol 2.5 mg Q4HPRN PRN NEB 07/05/24 13:30 UNV Ipratropium [place] 0.5 mg Q4HPRN PRN NEB 07/05/24 13:30 UNV Laboratory Results Laboratory Tests 07/04/24 22:09 07/05/24 00:17 Chemistry Test 07/04/24 22:09 07/05/24 00:17 07/05/24 06:12 Albumin 5.0 g/dL (3.2-4.8) H 4.3 g/dL (3.2-4.8) Calcium Level 9.2 mg/dL (8.7-10.4) 8.2 mg/dL (8.7-10.4) L Total Protein 7.8 g/dL (5.7-8.2) 6.8 g/dL (5.7-8.2) Magnesium Level 1.5 mg/dL (1.6-2.6) L Phosphorus Level 12.7 mg/dL (2.4-5.1) H Lipid panel Test 07/05/24 04:14 Lipase 69 U/L (12-53) H Cardiac Markers Test 07/05/24 04:19 B-Type Natriuretic Peptide 56.60 pg/mL (0-100) LFT Test 07/04/24 22:09 07/05/24 00:17 Alanine Aminotransferase (ALT) 47 U/L (7-40) H 41 U/L (7-40) H Alkaline Phosphatase 75 U/L (46-116) 64 U/L (46-116) Aspartate Amino Transferase (AST) 76 U/L (13-40) H 71 U/L (13-40) H Total Bilirubin 0.2 mg/dL (0.2-1.0) < 0.2 mg/dL (0.2-1.0) L Urinalysis Test 07/05/24 03:00 07/05/24 10:30 Urine Hyaline Casts Mod /lpf (0 - 2) Urine Granular Casts Mod /lpf (0) Urine Color Colorless (Yellow) Urine Clarity Turbid (Clear) H Urine pH 5.5 (5.0-9.0) Urine Specific [place] 1.014 (1.001-1.035) Urine Protein 1+ (Negative) H Urine Ketones Negative (Negative) Urine Blood 2+ /uL (Negative) H Urine Nitrite Negative (Negative) Urine Bilirubin Negative (Negative) Urine Urobilinogen Normal mg/dL (Negative) Urine Leukocyte Esterase Negative /uL (Negative) Urine RBC 25 /hpf (0 - 4) Urine Microscopic WBC 14 /HPF (0-5) H Urine Squamous Epithelial Cells Few /hpf (<5) Urine Bacteria Few /hpf (None Seen) H Urine Mucus Few (None Seen) Urine Yeast (Budding) Occasional /hpf (None Urine Creatinine Pending Urine Protein/Creatinine Ratio Pending Urine Sodium Pending Urine Glucose Normal mg/dL (Normal) Urine Total Protein Pending Blood Gas Results Test 07/05/24 00:44 Arterial Blood pH 7.313 (7.350-7.450) FiO2 % 28.0 Labs and/or images reviewed: Labs reviewed by me, Image(s) reviewed by me Assessment/Plan Assessment/Plan Impression: -acute renal failure, etiology: Prerenal, vasomotor nephropathy, exacerbated with NSAIDs and Dre -cannabinoid abuse -chronic pain syndrome -primary hypertension -shock, probably hypovolemic -nausea/vomiting/diarrhea -? Depression -NSTEMI type 2 secondary to demand ischemia Plans: -given the patient has had poor oral intake as well as nausea and vomiting as well as diarrhea for approximately one week, increase IV fluids -nephrology consultation -continue vasopressor therapy -stool culture -both uric acid and phosphorus elevated, -continue sodium bicarbonate drip -repeat labs in a.m. -discussion made with the patient as well as daughter who was bedside regarding severity of patient's illness. Pending evaluation by Nephrology, but patient may need hemodialysis at this time. Critical care time spent with patient discussing and formulating plan of care: 90 minutes. This does not include time spent performing procedures. This medical document was created using an electronic medical record system with [employer] system. Although this document has been carefully reviewed, there may still be some phonetic and typographical errors. These areas are purely typographical due to imperfections of the software programs, and do not reflect any compromise in the patient's medical care. Plan discussed with: Patient, Daughter, Other (RN) My Orders Orders - NANI DISLA NP Procedure Category Date Status Time Sodium Chloride 0.9% PHA 07/05/24 Logged 13:30 Morphine Sulfate PHA 07/05/24 Logged Injection 13:30 Hydrocodone-Acet PHA 07/05/24 Logged 5/325mg Tab ([place] 13:30 Ondansetron Hcl PHA 07/05/24 Logged (Zofran) 13:30 Albuterol Medneb PHA 07/05/24 Logged (Ventolin Medneb) 13:30 Ipratropium Medneb PHA 07/05/24 Logged (Atrovent Medneb) 13:30 Basic Metabolic Panel LAB 07/06/24 Verified 04:00 Chest Portable XY 07/06/24 Logged 04:00 Complete Blood Count LAB 07/06/24 Verified 04:00 Date of Service: Jul 05, 2024 Billing Provider: NNAI DISLA NP Common Visit Codes: [id number] CARE 30-74 MIN, [id number] CARE-EACH +30MIN NANI DISLA NP Jul 05, 2024 13:41
[2024-07-05 13:48] LABS: Rapid Influenza A Negative (Negative); Rapid Influenza B Negative (Negative)
[2024-07-05 13:49] LABS: COVID19 ANTIGEN SOFIA FIA NEGATIVE (NEGATIVE)
[2024-07-05] MEDS: metroNIDAZOLE 500MG/100ML 100 ML IV SCH (14:00)
[2024-07-05] MEDS: HYDROcodone-ACET 5/325MG TAB PO PRN (17:38)
[2024-07-05] MEDS: LOPERAMIDE HCL 2 MG CAP/TAB PO PRN (18:24)
[2024-07-05] MEDS: ATORVASTATIN 20 MG TAB PO SCH (22:10)
[2024-07-05] MEDS: PANTOPRAZOLE 40 MG/10 ML VIAL INJ IV ONE (22:34)
[2024-07-05] MEDS: cefTRIAXone 1GM/50ML D5W 50 ML IV SCH (23:21)
[2024-07-06] VITALS (23 sets, daily range): BP systolic 83–109; BP diastolic 43–68; PULSE 77–96; RESP 13–28; TEMP 98.9–99.2; O2SAT 87–94
[2024-07-06 04:25] LABS: Basophils # (auto) 0 10 ^3/uL (0-0.2); Basophils % (auto) 0.4 % (0.0-2.0); Eosinophils # (auto) 0 10 ^3/uL (0-0.8); Hematocrit 36.5 % (36.0-46.0); Hemoglobin 12.7 g/dL (12.2-16.2); Lymphocytes # (auto) 0.7 10 ^3/uL (0.4-5.4); Lymphocytes % (auto) 10.8 % (10.0-50.0); Mean Corpuscular Hemoglobin 31.9 pg (28.0-32.0); Mean Corpuscular Hgb Conc. 34.9 g/dL (32.0-36.0); Mean Corpuscular Volume 91.4 fL (80.0-100.0); Monocytes # (auto) 0.2 10 ^3/uL (0-1.3); Monocytes % (auto) 2.9 % (0.0-12.0); Neutrophils # (auto) 5.5 10 ^3/uL (1.6-8.6); Neutrophils % (auto) 85.9 % (37.0-80.0); Nucleated Red Blood Cells % 0.1 %; Platelet Count (auto) 124 10^3/uL (140-450); Red Cell Distribution Width 14.5 % (11.8-14.3); White Blood Cell 6.4 10^3/uL (4.4-10.8)
[2024-07-06 04:45] LABS: Partial Thromboplastin Time 28.5 SEC (24.5-34.5); Prothrombin Time 10.6 sec (9.3-11.8)
--- NOTE | 2024-07-06 05:20 | DVH ---
EXAM: XR Chest, 1 View CLINICAL INDICATION: chf TECHNIQUE: Frontal view of the chest. COMPARISON: None FINDINGS: LUNGS AND PLEURAL SPACES: See below. HEART: Cardiomegaly with mild congestion. MEDIASTINUM: Unremarkable. Normal mediastinal contour. BONES/JOINTS: Unremarkable. No acute fracture. OTHER FINDINGS: . None. . .. IMPRESSION: Cardiomegaly with mild congestion.
[2024-07-06] MEDS: MORPHINE SULFATE INJ 2 MG/ml SYRG IV PRN (05:30)
[2024-07-06 07:02] LABS: Anion Gap 18 (5-15)
[2024-07-06 07:07] LABS: RPR Non Reactive (Non Reactive)
[2024-07-06 07:08] LABS: BUN/Creatinine Ratio 12.5 (10.0-20.0)
[2024-07-06 07:20] LABS: Alanine Aminotransferase 31 U/L (7-40); Albumin 3.6 g/dL (3.2-4.8); Alkaline Phosphatase 57 U/L (46-116); Aspartate Aminotransferase 61 U/L (13-40); Bilirubin, Total 0.2 mg/dL (0.2-1.0); Calcium 7.3 mg/dL (8.7-10.4); Carbon Dioxide 13 mmol/L (20-31); Chloride 108 mmol/L (98-107); Glucose 85 mg/dL (74-106); Potassium 3.1 mmol/L (3.5-5.1); Sodium 139 mmol/L (136-145); Total Protein 5.9 g/dL (5.7-8.2)
[2024-07-06 07:24] LABS: Blood Urea Nitrogen 82 mg/dL (9-23)
[2024-07-06 09:06] LABS: Complement C3 143 mg/dL (82-167)
[2024-07-06] MEDS: POTASSIUM EFFERVESENT TAB 25 MEQ PO ONE (10:05)
[2024-07-06] MEDS: PANTOPRAZOLE 40 MG/10 ML VIAL INJ IV SCH (10:05)
[2024-07-06] MEDS: ONDANSETRON HCL 4 MG/2 ML VIAL IV PRN (10:22)
--- NOTE | 2024-07-06 10:49 | DVHPN2 ---
Subjective Patient reports having generalized weakness and body aches, but states she feels better compared to yesterday. Reviewed: Care Plan, H&P, Labs, Medications, Previous Orders Changes from previous H/P or p: No Changes General: Per HPI Objective Vitals Vital Signs Date Time Temp Pulse Resp B/P (MAP) Pulse Ox O2 Delivery O2 Flow Rate FiO2 07/06/24 08:00 81 07/06/24 07:45 98.1 24 115/59 (77) 94 98.1 07/06/24 07:45 Nasal Cannula* 3 32 Intake/Output Intake and Output 07/06/24 07:00 Intake Total 5595 ml Output Total 2750 ml Balance 2845 ml Intake Oral 400 ml IV Total 5195 ml Output Urine Total 2750 ml # Bowel Movements 6 General Appearance: Alert, Oriented X3, Cooperative, moderate distress HEENT: Atraumatic, PERRLA Lungs: Clear to auscultation, Normal air movement Cardiovascular: Normal S1, Normal S2 Abdomen: Normal bowel sounds, Soft Genitourinary: No Apparent Abnormalities (Abdullahi catheter) Musculoskeletal: Normal sensory function, Normal motor function Neuro: Normal gait, Normal speech Psych/Mental Status: Mental status NL, Mood NL Medications Current Medications Medications Dose Ordered Sig/Ralph Route Start Time Stop Time Status Last Admin Dose Admin Phenylephrine HCl 250 ml @ 30 mls/hr Q8H20M IV 07/05/24 00:15 07/06/24 06:26 135 MLS/HR Ceftriaxone Sodium 50 ml @ 100 mls/hr Q24H IV 07/05/24 23:00 07/05/24 23:21 100 MLS/HR Metronidazole 100 ml @ 100 mls/hr Q8HR IV 07/05/24 06:00 07/06/24 06:13 100 MLS/HR Atorvastatin Calcium 20 mg HS PO 07/05/24 22:00 07/05/24 22:10 20 MG Aspirin 162 mg DAILY PO 07/05/24 10:00 07/06/24 10:05 162 MG Sodium Bicarbonate 100 ml/Sodium Chloride 1,100 ml @ 120 mls/hr Q9H10M IV 07/05/24 10:00 07/06/24 05:00 120 MLS/HR Morphine Sulfate 1 mg Q4HPRN PRN IV 07/05/24 13:30 07/06/24 05:30 1 MG Acetaminophen/ Hydrocodone Bitart 1 tab Q6HPRN PRN PO 07/05/24 13:30 07/05/24 17:38 1 TAB Ondansetron HCl 4 mg Q6HP PRN IV 07/05/24 13:30 07/06/24 10:22 4 MG Albuterol 2.5 mg Q4HPRN PRN NEB 07/05/24 13:30 Ipratropium [place] 0.5 mg Q4HPRN PRN NEB 07/05/24 13:30 Loperamide HCl 2 mg Q4HPRN PRN PO 07/05/24 18:15 07/05/24 18:24 2 MG Pantoprazole Sodium 40 mg DAILY IV 07/06/24 10:00 07/06/24 10:05 40 MG Laboratory Results Laboratory Tests 07/06/24 04:03 Chemistry Test 07/06/24 04:03 Albumin 3.6 g/dL (3.2-4.8) Calcium Level 7.3 mg/dL (8.7-10.4) L Total Protein 5.9 g/dL (5.7-8.2) Coagulation Test 07/06/24 04:03 Prothrombin Time 10.6 sec (9.3-11.8) Prothrombin Time INR 1.00 (0.9-1.15) Activated Partial Thromboplast Time 28.5 SEC (24.5-34.5) LFT Test 07/06/24 04:03 Alanine Aminotransferase (ALT) 31 U/L (7-40) Alkaline Phosphatase 57 U/L (46-116) Aspartate Amino Transferase (AST) 61 U/L (13-40) H Total Bilirubin 0.2 mg/dL (0.2-1.0) Urinalysis Test 07/05/24 03:00 07/05/24 10:30 Urine Hyaline Casts Mod /lpf (0 - 2) Urine Granular Casts Mod /lpf (0) Urine Color Colorless (Yellow) Urine Clarity Turbid (Clear) H Urine pH 5.5 (5.0-9.0) Urine Specific [place] 1.014 (1.001-1.035) Urine Protein 1+ (Negative) H Urine Ketones Negative (Negative) Urine Blood 2+ /uL (Negative) H Urine Nitrite Negative (Negative) Urine Bilirubin Negative (Negative) Urine Urobilinogen Normal mg/dL (Negative) Urine Leukocyte Esterase Negative /uL (Negative) Urine RBC 25 /hpf (0 - 4) Urine Microscopic WBC 14 /HPF (0-5) H Urine Squamous Epithelial Cells Few /hpf (<5) Urine Bacteria Few /hpf (None Seen) H Urine Mucus Few (None Seen) Urine Yeast (Budding) Occasional /hpf (None Urine Creatinine Pending Urine Protein/Creatinine Ratio Pending Urine Sodium Pending Urine Glucose Normal mg/dL (Normal) Urine Total Protein Pending Microbiology Microbiology Date/Time Source Procedure Growth Status 07/04/24 22:09 Blood Blood Culture - Preliminary NO GROWTH AFTER 24 HOURS OF INCUBATION. Resulted Labs and/or images reviewed: Labs reviewed by me, Image(s) reviewed by me Assessment/Plan Assessment/Plan Impression: -acute renal failure, etiology: Prerenal, vasomotor nephropathy, exacerbated with NSAIDs and Dre -cannabinoid abuse -chronic pain syndrome -primary hypertension -shock, probably hypovolemic -nausea/vomiting/diarrhea -? Depression -NSTEMI type 2 secondary to demand ischemia Plans: Events: Patient with improved urine output. Blood pressure also with marked improvement, stable. Discussed with primary nurse to please weaned off of vasopressors to keep systolic blood pressure greater than 90 mmHg. -nephrology consultation -continue vasopressor therapy -stool culture -both uric acid and phosphorus elevated, -continue sodium bicarbonate drip -repeat labs in a.m. Critical care time spent with patient discussing and formulating plan of care: 40 minutes. This does not include time spent performing procedures. This medical document was created using an electronic medical record system with [employer] dictation system. Although this document has been carefully reviewed, there may still be some phonetic and typographical errors. These areas are purely typographical due to imperfections of the software programs, and do not reflect any compromise in the patient's medical care. Plan discussed with: Patient, Other (RN) My Orders Orders - NANI DISLA NP Procedure Category Date Status Time Morphine Sulfate PHA 07/05/24 In Process Injection 13:30 Hydrocodone-Acet PHA 07/05/24 In Process 5/325mg Tab ([place] 13:30 Ondansetron Hcl PHA 07/05/24 In Process (Zofran) 13:30 Albuterol Medneb PHA 07/05/24 In Process (Ventolin Medneb) 13:30 Ipratropium Medneb PHA 07/05/24 In Process (Atrovent Medneb) 13:30 Chest Portable XY 07/06/24 Resulted 04:00 Loperamide Capsule PHA 07/05/24 In Process (Imodium Capsule) 18:15 Pantoprazole PHA 07/06/24 In Process (Protonix) 10:00 Date of Service: Jul 06, 2024 Billing Provider: NANI DISLA NP Common Visit Codes: [id number] CARE 30-74 MIN NANI DISLA NP Jul 06, 2024 10:49
--- NOTE | 2024-07-06 11:09 | DVHPN2 ---
Progress Note Date Seen: Jul 06, 2024 Medical Necessity Reason Pt with a Central, PICC or Fol: No Subjective Patient reports: No new complaints Other Systems: Patient seen and examined by myself today in follow-up Objective vital signs Vital Sign Date Time Temp Pulse Resp B/P (MAP) Pulse Ox O2 Delivery O2 Flow Rate FiO2 07/06/24 08:00 81 07/06/24 07:45 98.1 24 115/59 (77) 94 98.1 07/06/24 07:45 Nasal Cannula* 3 32 Total Intake and Output 07/05/24 07/05/24 07/06/24 14:59 22:59 06:59 Intake Total 1440 ml 2315 ml 1975 ml Output Total 450 ml 2300 ml Balance 1440 ml 1865 ml -325 ml medications Current Medications Medications Dose Ordered Sig/Ralph Route Start Time Stop Time Status Last Admin Dose Admin Phenylephrine HCl 250 ml @ 30 mls/hr Q8H20M IV 07/05/24 00:15 07/06/24 06:26 135 MLS/HR Ceftriaxone Sodium 50 ml @ 100 mls/hr Q24H IV 07/05/24 23:00 07/05/24 23:21 100 MLS/HR Metronidazole 100 ml @ 100 mls/hr Q8HR IV 07/05/24 06:00 07/06/24 06:13 100 MLS/HR Atorvastatin Calcium 20 mg HS PO 07/05/24 22:00 07/05/24 22:10 20 MG Aspirin 162 mg DAILY PO 07/05/24 10:00 07/06/24 10:05 162 MG Sodium Bicarbonate 100 ml/Sodium Chloride 1,100 ml @ 120 mls/hr Q9H10M IV 07/05/24 10:00 07/06/24 05:00 120 MLS/HR Morphine Sulfate 1 mg Q4HPRN PRN IV 07/05/24 13:30 07/06/24 05:30 1 MG Acetaminophen/ Hydrocodone Bitart 1 tab Q6HPRN PRN PO 07/05/24 13:30 07/05/24 17:38 1 TAB Ondansetron HCl 4 mg Q6HP PRN IV 07/05/24 13:30 07/06/24 10:22 4 MG Albuterol 2.5 mg Q4HPRN PRN NEB 07/05/24 13:30 Ipratropium [place] 0.5 mg Q4HPRN PRN NEB 07/05/24 13:30 Loperamide HCl 2 mg Q4HPRN PRN PO 07/05/24 18:15 07/05/24 18:24 2 MG Pantoprazole Sodium 40 mg DAILY IV 07/06/24 10:00 07/06/24 10:05 40 MG Examination: LUNGS:Normal, CVS:Normal, MSK:Normal laboratory and microbiology Laboratory Tests 07/06/24 04:03 Test 07/06/24 04:03 Range/Units Serum Glucose 85 74-106 mg/dL Microbiology Date/Time Source Procedure Growth Status 07/04/24 22:09 Blood Blood Culture - Preliminary NO GROWTH AFTER 24 HOURS OF INCUBATION. Resulted Problem List/Assessment/Plan Problem List/Assessment/Plan Acute kidney injury superimposed Chronic Kidney Disease secondary hemodynamic mediated Elevated troponin Diarrheal illness Metabolic acidosis Dehydration Transaminitis Hemoconcentration Hypokalemia Hypomagnesemia Recommendations Kidney function is improving Increased urine output KCL replacement Abdullahi catheter Strict I&Os KCL replacement Magnesium sulfate IV piggyback IVF half NS with 100 mEq sodium bicarb at 120 cc/hour Check ESTUARDO, Anca panel, C3, C4, RPR HCV and hep B surface antigen Check urine electrolytes and urine protein excretion Kidney ultrasound reported within normal limit Cardiology consult We will continue to follow Plan discussed with: Patient My Orders My Orders Orders - SHANDA AVENDANO MD Procedure Category Date Status Time Insert Midline ORDERS 07/05/24 Transmitted 14:32 * Picc Line Consult CONS 07/05/24 Transmitted 17:08 SHANDA AVENDANO MD Jul 06, 2024 11:08
[2024-07-06 12:53] LABS: Protein, Urine 163.8 mg/dL (1-14)
[2024-07-06 12:54] LABS: Creatinine, Urine 198.08 mg/dL (30.0-125.0); Urine Protein/Creatinine Ratio 0.83
[2024-07-06] MEDS: MAGNESIUM SULFATE 1GM/100ML 100 ML IV SCH (13:45)
[2024-07-06] MEDS: SODIUM BICARB 50mEq/50ml Vial 100 ML in SOD CHL 0.45% 1,000 ML IV SCH (13:46)
[2024-07-06 14:06] LABS: Anti-Nuclear Antibody Direct Negative (Negative)
[2024-07-06] MEDS: guaiFENesin-DM 100/10mg/5ml SYR PO PRN (14:09)
[2024-07-06] MEDS: POTASSIUM CHL 20MEQ/100ML 100 ML IV SCH (14:10)
[2024-07-07] VITALS (34 sets, daily range): BP systolic 92–145; BP diastolic 46–84; PULSE 66–108; RESP 10–44; TEMP 97.3–99.4; O2SAT 87–100
[2024-07-07 06:43] LABS: Basophils # (auto) 0 10 ^3/uL (0-0.2); Basophils % (auto) 0.2 % (0.0-2.0); Eosinophils # (auto) 0 10 ^3/uL (0-0.8); Eosinophils % (auto) 0.1 % (0.0-7.0); Hematocrit 35.5 % (36.0-46.0); Hemoglobin 12.7 g/dL (12.2-16.2); Lymphocytes # (auto) 0.4 10 ^3/uL (0.4-5.4); Lymphocytes % (auto) 6.8 % (10.0-50.0); Mean Corpuscular Hemoglobin 32.4 pg (28.0-32.0); Mean Corpuscular Hgb Conc. 35.7 g/dL (32.0-36.0); Mean Corpuscular Volume 90.6 fL (80.0-100.0); Monocytes # (auto) 0.2 10 ^3/uL (0-1.3); Monocytes % (auto) 3.9 % (0.0-12.0); Neutrophils # (auto) 5.5 10 ^3/uL (1.6-8.6); Nucleated Red Blood Cells % 0.1 %; Platelet Count (auto) 153 10^3/uL (140-450); Red Blood Cells 3.92 10^6/uL (4.0-5.20); Red Cell Distribution Width 14.4 % (11.8-14.3); White Blood Cell 6.2 10^3/uL (4.4-10.8)
[2024-07-07 06:53] LABS: Alanine Aminotransferase 30 U/L (7-40); Albumin 3.8 g/dL (3.2-4.8); Alkaline Phosphatase 62 U/L (46-116); Anion Gap 10 (5-15); BUN/Creatinine Ratio 31.1 (10.0-20.0); Carbon Dioxide 27 mmol/L (20-31); Sodium 144 mmol/L (136-145)
[2024-07-07 06:54] LABS: Bilirubin, Total 0.5 mg/dL (0.2-1.0)
[2024-07-07 06:56] LABS: Aspartate Aminotransferase 61 U/L (13-40); Blood Urea Nitrogen 47 mg/dL (9-23); Calcium 8.1 mg/dL (8.7-10.4); Chloride 107 mmol/L (98-107); Glucose 149 mg/dL (74-106); Potassium 3.1 mmol/L (3.5-5.1)
[2024-07-07] MEDS: POTASSIUM CHLORIDE 40 MEQ in SOD CHL 0.45% 1,000 ML IV SCH (07:00)
--- NOTE | 2024-07-07 08:04 | DVHPN2 ---
Subjective Patient reports having generalized weakness and body aches, but states she feels better compared to yesterday. Reviewed: Care Plan, H&P, Labs, Medications, Previous Orders Changes from previous H/P or p: No Changes General: Per HPI Objective Vitals Vital Signs Date Time Temp Pulse Resp B/P (MAP) Pulse Ox O2 Delivery O2 Flow Rate FiO2 07/07/24 07:33 78 21 105/65 (78) 98 07/07/24 06:36 Nasal Cannula 5.0 07/07/24 06:36 40 07/07/24 04:00 99.4 99.4 Intake/Output Intake and Output 07/07/24 07:00 Intake Total 4901.45 ml Output Total 6100 ml Balance -1198.55 ml Intake Oral 780 ml IV Total 4121.45 ml Output Urine Total 6100 ml # Bowel Movements 2 General Appearance: Alert, Oriented X3, Cooperative, moderate distress HEENT: Atraumatic, PERRLA Lungs: Clear to auscultation, Normal air movement Cardiovascular: Normal S1, Normal S2 Abdomen: Normal bowel sounds, Soft Genitourinary: No Apparent Abnormalities (Abdullahi catheter) Musculoskeletal: Normal sensory function, Normal motor function Neuro: Normal gait, Normal speech Skin: Dry, Intact Psych/Mental Status: Mental status NL, Mood NL Medications Current Medications Medications Dose Ordered Sig/Ralph Route Start Time Stop Time Status Last Admin Dose Admin Phenylephrine HCl 250 ml @ 30 mls/hr Q8H20M IV 07/05/24 00:15 07/06/24 13:47 97.5 MLS/HR Ceftriaxone Sodium 50 ml @ 100 mls/hr Q24H IV 07/05/24 23:00 07/06/24 23:00 100 MLS/HR Metronidazole 100 ml @ 100 mls/hr Q8HR IV 07/05/24 06:00 07/07/24 06:02 100 MLS/HR Atorvastatin Calcium 20 mg HS PO 07/05/24 22:00 07/06/24 22:05 20 MG Aspirin 162 mg DAILY PO 07/05/24 10:00 07/06/24 10:05 162 MG Morphine Sulfate 1 mg Q4HPRN PRN IV 07/05/24 13:30 07/06/24 05:30 1 MG Acetaminophen/ Hydrocodone Bitart 1 tab Q6HPRN PRN PO 07/05/24 13:30 07/07/24 03:10 1 TAB Ondansetron HCl 4 mg Q6HP PRN IV 07/05/24 13:30 07/06/24 10:22 4 MG Albuterol 2.5 mg Q4HPRN PRN NEB 07/05/24 13:30 Ipratropium [place] 0.5 mg Q4HPRN PRN NEB 07/05/24 13:30 Loperamide HCl 2 mg Q4HPRN PRN PO 07/05/24 18:15 07/05/24 18:24 2 MG Pantoprazole Sodium 40 mg DAILY IV 07/06/24 10:00 07/06/24 10:05 40 MG Guaifenesin/ Dextromethorphan 10 ml Q4HP PRN PO 07/06/24 13:45 07/07/24 04:37 10 ML Potassium Chloride 40 meq/ Sodium Chloride 1,020 ml @ 100 mls/hr [id number] IV 07/07/24 07:00 07/07/24 17:11 UNV Magnesium Sulfate/ Dextrose 100 ml @ 100 mls/hr Q1HR IV 07/07/24 07:00 07/07/24 08:59 UNV Laboratory Results Laboratory Tests 07/07/24 05:55 Chemistry Test 07/07/24 05:55 Albumin 3.8 g/dL (3.2-4.8) Calcium Level 8.1 mg/dL (8.7-10.4) L Total Protein 6.0 g/dL (5.7-8.2) LFT Test 07/07/24 05:55 Alanine Aminotransferase (ALT) 30 U/L (7-40) Alkaline Phosphatase 62 U/L (46-116) Aspartate Amino Transferase (AST) 61 U/L (13-40) H Total Bilirubin 0.5 mg/dL (0.2-1.0) Urinalysis Test 07/05/24 03:00 07/05/24 10:30 Urine Hyaline Casts Mod /lpf (0 - 2) Urine Granular Casts Mod /lpf (0) Urine Color Colorless (Yellow) Urine Clarity Turbid (Clear) H Urine pH 5.5 (5.0-9.0) Urine Specific [place] 1.014 (1.001-1.035) Urine Protein 1+ (Negative) H Urine Ketones Negative (Negative) Urine Blood 2+ /uL (Negative) H Urine Nitrite Negative (Negative) Urine Bilirubin Negative (Negative) Urine Urobilinogen Normal mg/dL (Negative) Urine Leukocyte Esterase Negative /uL (Negative) Urine RBC 25 /hpf (0 - 4) Urine Microscopic WBC 14 /HPF (0-5) H Urine Squamous Epithelial Cells Few /hpf (<5) Urine Bacteria Few /hpf (None Seen) H Urine Mucus Few (None Seen) Urine Yeast (Budding) Occasional /hpf (None Urine Creatinine 198.08 mg/dL (30.0-125.0) H Urine Protein/Creatinine Ratio 0.83 Urine Sodium 42 mmol/L (40-220) Urine Glucose Normal mg/dL (Normal) Urine Total Protein 163.8 mg/dL (1-14) H Microbiology Microbiology Date/Time Source Procedure Growth Status 07/05/24 12:05 Nose MRSA Screen - Final Complete 07/04/24 22:09 Blood Blood Culture - Preliminary NO GROWTH AFTER 48 HOURS OF INCUBATION. Resulted Labs and/or images reviewed: Labs reviewed by me, Image(s) reviewed by me Assessment/Plan Assessment/Plan Impression: -acute renal failure, etiology: Prerenal, vasomotor nephropathy, exacerbated with NSAIDs and Dre -cannabinoid abuse -chronic pain syndrome -primary hypertension -shock, probably hypovolemic -nausea/vomiting/diarrhea -? Depression -NSTEMI type 2 secondary to demand ischemia Plans: Events: Patient was weaned off of phenylephrine drip. Marked improvement with the patient's renal function. ST depression noted on bedside monitor. -echocardiogram: Results reviewed. -12 lead ECG -nephrology consultation -stop sodium bicarbonate drip. Change to half NS with 40 mEq of potassium chloride at 100 mL/hour -stool culture: Pending -repeat labs in a.m. -K and Mag replacement -transferred to telemetry unit Total time spent with patient discussing and formulating plan of care: 35 minutes. This medical document was created using an electronic medical record system with [employer] dictation system. Although this document has been carefully reviewed, there may still be some phonetic and typographical errors. These areas are purely typographical due to imperfections of the software programs, and do not reflect any compromise in the patient's medical care. Plan discussed with: Patient, Other (RN) My Orders Orders - NANI DISLA [employer] ENGINEER Procedure Category Date Status Time Pantoprazole PHA 07/06/24 In Process (Protonix) 10:00 Communication Order ORDERS 07/06/24 Transmitted 10:39 Guaifenesin-Dextromet PHA 07/06/24 In Process Liquid (Robitussin 13:45 Sod Chl 0.45% PHA 07/07/24 Logged (Sodi... W/Potassium 07:00 Magnesium Sulfate PHA 07/07/24 Logged 1gm/100ml 07:00 Creatine Kinase LAB 07/07/24 In Process 06:58 Potassium LAB 07/07/24 Logged 14:00 Magnesium LAB 07/07/24 Logged 14:00 Electrocardigram EKG 07/07/24 Logged 07:55 Transfer Orders XFER 07/07/24 Transmitted 07:55 Date of Service: Jul 07, 2024 Billing Provider: NANI DISLA NP Common Visit Codes: [id number] INP/OBS CARE(HIGH) NANI DISLA NP Jul 07, 2024 08:04
--- NOTE | 2024-07-07 09:42 | DVHPN2 ---
Progress Note Date Seen: Jul 07, 2024 Medical Necessity Reason Pt with a Central, PICC or Fol: No Subjective Patient reports: No new complaints Other Systems: Patient seen and examined by myself today in follow-up Objective vital signs Vital Sign Date Time Temp Pulse Resp B/P (MAP) Pulse Ox O2 Delivery O2 Flow Rate FiO2 07/07/24 08:15 76 07/07/24 07:33 21 105/65 (78) 98 07/07/24 06:36 Nasal Cannula 5.0 07/07/24 06:36 40 07/07/24 04:00 99.4 99.4 Total Intake and Output 07/06/24 07/06/24 07/07/24 15:00 23:00 07:00 Intake Total 1218.05 ml 1663.6 ml 2019.8 ml Output Total 2000 ml 4100 ml Balance -781.95 ml 1663.6 ml -2080.2 ml medications Current Medications Medications Dose Ordered Sig/Ralph Route Start Time Stop Time Status Last Admin Dose Admin Phenylephrine HCl 250 ml @ 30 mls/hr Q8H20M IV 07/05/24 00:15 07/06/24 13:47 97.5 MLS/HR Ceftriaxone Sodium 50 ml @ 100 mls/hr Q24H IV 07/05/24 23:00 07/06/24 23:00 100 MLS/HR Metronidazole 100 ml @ 100 mls/hr Q8HR IV 07/05/24 06:00 07/07/24 06:02 100 MLS/HR Atorvastatin Calcium 20 mg HS PO 07/05/24 22:00 07/06/24 22:05 20 MG Aspirin 162 mg DAILY PO 07/05/24 10:00 07/06/24 10:05 162 MG Morphine Sulfate 1 mg Q4HPRN PRN IV 07/05/24 13:30 07/06/24 05:30 1 MG Acetaminophen/ Hydrocodone Bitart 1 tab Q6HPRN PRN PO 07/05/24 13:30 07/07/24 03:10 1 TAB Ondansetron HCl 4 mg Q6HP PRN IV 07/05/24 13:30 07/06/24 10:22 4 MG Albuterol 2.5 mg Q4HPRN PRN NEB 07/05/24 13:30 Ipratropium [place] 0.5 mg Q4HPRN PRN NEB 07/05/24 13:30 Loperamide HCl 2 mg Q4HPRN PRN PO 07/05/24 18:15 07/05/24 18:24 2 MG Pantoprazole Sodium 40 mg DAILY IV 07/06/24 10:00 07/06/24 10:05 40 MG Guaifenesin/ Dextromethorphan 10 ml Q4HP PRN PO 07/06/24 13:45 07/07/24 04:37 10 ML Potassium Chloride 40 meq/ Sodium Chloride 1,020 ml @ 100 mls/hr [id number] IV 07/07/24 07:00 07/07/24 17:11 Examination: LUNGS:Normal, CVS:Normal, MSK:Normal laboratory and microbiology Laboratory Tests 07/07/24 05:55 Test 07/07/24 05:55 Range/Units Serum Glucose 149 H 74-106 mg/dL Microbiology Date/Time Source Procedure Growth Status 07/05/24 12:05 Nose MRSA Screen - Final Complete 07/04/24 22:09 Blood Blood Culture - Preliminary NO GROWTH AFTER 48 HOURS OF INCUBATION. Resulted Problem List/Assessment/Plan Problem List/Assessment/Plan Acute kidney injury superimposed Chronic Kidney Disease secondary hemodynamic mediated Elevated troponin Diarrheal illness Metabolic acidosis Dehydration Transaminitis Hemoconcentration Hypokalemia Hypomagnesemia Recommendations Kidney function continues to improve Increased urine output KCL replacement Abdullahi catheter Strict I&Os KCL replacement Magnesium sulfate IV piggyback Kidney ultrasound reported within normal limit Cardiology consult We will continue to follow Plan discussed with: Patient SHANDA AVENDANO MD Jul 07, 2024 09:42
[2024-07-07] MEDS: MAGNESIUM SULFATE 1GM/100ML 100 ML IV SCH (09:58)
[2024-07-07] MEDS: PANTOPRAZOLE 40 MG/10 ML VIAL INJ IV SCH (10:50)
[2024-07-07 14:07] LABS: Cytoplasmic (C-ANCA) <1:20 titer (Neg:<1:20); Perinuclear (P-ANCA) <1:20 titer (Neg:<1:20)
[2024-07-07 15:07] LABS: Antimyeloperoxidase (MPO) Ab <0.2 units (0.0-0.9); Antiproteinase 3 (PR-3) Ab <0.2 units (0.0-0.9)
[2024-07-07 15:11] LABS: Magnesium 1.8 mg/dL (1.6-2.6)
[2024-07-07 15:12] LABS: Potassium 3.3 mmol/L (3.5-5.1)
--- NOTE | 2024-07-07 17:13 | DVHCONRES ---
Date Seen: Jul 07, 2024 Resident Creating Document: ASHLEY PATEL RESIDENT Referring Physician SHIMA Person History of Present Illness This is 59-year-old female presents evaluation a one-week history of nausea vomiting and diarrhea. Patient reports worsening fatigue with generalized weakness she also reports decreased urine output. On arrival patient's blood pressure was in the 70s. Reports generalized body aches as well. No chest pain or palpitations. No shortness a breath. Patient was seen and examined on the bedside. She is alert oriented x3. Complaint of generalized weakness. Family History: Alcoholism G8 FATHER Arthritis G8 BROTHER G8 BROTHER G8 BROTHER Asthma G8 BROTHER Depression G8 MOTHER Hypertension G8 BROTHER Allergies: Coded Allergies: Sulfa Antibiotics (Verified Allergy, Unknown, 04/03/16) Home Meds Reported Medications Azelastine Hcl (Ophth) (Azelastine Hcl) 0.05 % Venkata, 1 DROP OP BID for 30 Days, #6 APPLY 1 DROP INTO AFFECTED EYE TWICE A DAY. 07/06/24 Cholecalciferol (VITAMIN D3) 2,000 Unit Tab, 1 TAB PO DAILY for 90 Days, #90 [VITAMIN D3 50 MCG = 2,000 UNITS] 07/06/24 Gabapentin (Gabapentin) 300 Mg Cap, 1 CAP PO TID for 90 Days, #270 07/06/24 Omeprazole (Omeprazole Dr) 40 Mg Cap, 1 CAP PO DAILY for 90 Days, #90 07/06/24 Atorvastatin Calcium (Lipitor) 20 Mg Tab, 1 TAB PO DAILY for 100 Days, #100 07/06/24 Sertraline Hcl (Sertraline Hcl) 100 Mg Tab, 1 TAB PO DAILY for 90 Days, #90 07/06/24 Lisinopril (Lisinopril) 20 Mg Tab, 1 TAB PO DAILY for 30 Days, #30 07/06/24 Aspirin (Aspirin Low Dose) 81 Mg Chw, 1 TAB PO DAILY for 90 Days, #90 07/06/24 Hydrochlorothiazide (Hydrochlorothiazide) 25 Mg Tab, 1 TAB PO DAILY for 90 Days, #90 07/06/24 Meloxicam (Meloxicam) 15 Mg Tab, 1 TAB PO DAILY PRN for PAIN for 30 Days, #30 07/06/24 Hydralazine Hcl (Hydralazine Hcl) 50 Mg Tab, 1 TAB PO TID for 90 Days, #270 07/06/24 Hydrocodone-Acetaminophen (Hydrocodone Bitartrate/AC 10-325 mg) 1 Tab Tab, 1 TAB PO BID PRN for 30 Days, #60 07/06/24 Metoprolol Succinate (Metoprolol Succinate Er) 50 Mg Tab, 1 TAB PO Q12HR for 30 Days, #60 07/06/24 Current Medications Current Medications Medications (Trade) Dose Ordered Sig/Ralph Route PRN Reason Start Time Stop Time Status Last Admin Potassium Chloride 40 meq/ Sodium Chloride 1,020 ml @ 100 mls/hr [id number] IV 07/07/24 07:00 07/07/24 17:11 DC 07/07/24 07:00 Magnesium Sulfate/ Dextrose 100 ml @ 100 mls/hr Q1HR IV 07/07/24 07:00 07/07/24 09:20 DC 07/07/24 10:49 Pantoprazole Sodium (Protonix) 40 mg BID IV 07/07/24 10:00 07/07/24 10:50 Vital Signs Vital Signs Date Time Temp Pulse Resp B/P (MAP) Pulse Ox O2 Delivery O2 Flow Rate FiO2 07/07/24 16:58 98.2 103 18 130/82 (98) 91 98.2 07/07/24 07:30 Room Air* 0 21 Labs/Diagnostic Data Labs Test 07/07/24 14:21 07/07/24 05:55 07/07/24 03:27 07/06/24 04:03 Range/Units Potassium Level 3.3 L 3.5-5.1 mmol/L Magnesium Level 1.8 1.6-2.6 mg/dL White Blood Count 6.2 4.4-10.8 10^3/uL Red Blood Count 3.92 L 4.0-5.20 10^6/uL Hemoglobin 12.7 12.2-16.2 g/dL Hematocrit 35.5 L 36.0-46.0 % Mean Corpuscular Volume 90.6 80.0-100.0 fL Mean Corpuscular Hemoglobin 32.4 H 28.0-32.0 pg Mean Corpuscular Hemoglobin Concent 35.7 32.0-36.0 g/dL Red Cell Distribution Width 14.4 H 11.8-14.3 % Platelet Count 153 140-450 10^3/uL Mean Platelet Volume 9.7 6.9-10.8 fL Neutrophils (%) (Auto) 89.0 H 37.0-80.0 % Lymphocytes (%) (Auto) 6.8 L 10.0-50.0 % Monocytes (%) (Auto) 3.9 0.0-12.0 % Eosinophils (%) (Auto) 0.1 0.0-7.0 % Basophils (%) (Auto) 0.2 0.0-2.0 % Neutrophils # (Auto) 5.5 1.6-8.6 10 ^3/uL Lymphocytes # (Auto) 0.4 0.4-5.4 10 ^3/uL Monocytes # (Auto) 0.2 0-1.3 10 ^3/uL Eosinophils # (Auto) 0 0-0.8 10 ^3/uL Basophils # (Auto) 0 0-0.2 10 ^3/uL Nucleated Red Blood Cells 0.1 % Sodium Level 144 # 136-145 mmol/L Chloride Level 107 98-107 mmol/L Carbon Dioxide Level 27 20-31 mmol/L Anion Gap 10 5-15 Blood Urea Nitrogen 47 #H 9-23 mg/dL Creatinine 1.51 #H 0.550-1.02 mg/dL Glomerular Filtration Rate Calc 39 >90 mL/min BUN/Creatinine Ratio 31.1 H 10.0-20.0 Serum Glucose 149 H 74-106 mg/dL Calcium Level 8.1 L 8.7-10.4 mg/dL Total Bilirubin 0.5 0.2-1.0 mg/dL Aspartate Amino Transferase (AST) 61 H 13-40 U/L Alanine Aminotransferase (ALT) 30 7-40 U/L Alkaline Phosphatase 62 46-116 U/L Creatine Kinase 504 H 34-145 U/L Total Protein 6.0 5.7-8.2 g/dL Albumin 3.8 3.2-4.8 g/dL Stool Occult Blood Positive Negative Stool Occult Blood Sample #3 Negative Prothrombin Time 10.6 9.3-11.8 sec Prothrombin Time INR 1.00 0.9-1.15 Activated Partial Thromboplast Time 28.5 24.5-34.5 SEC Test 07/05/24 13:41 07/05/24 12:05 07/05/24 10:30 07/05/24 06:12 Range/Units Anti-Nuclear Antibody Screen Negative Negative Cytoplasmic ANCA (c-ANCA) Antibody <1:20 Neg:<1:20 titer Anti-Proteinase 3 (c-ANCA) <0.2 0.0-0.9 units Atypical p-ANCA <1:20 Neg:<1:20 titer Perinuclear ANCA (p-ANCA) Antibody <1:20 Neg:<1:20 titer Myeloperoxidase Antibody <0.2 0.0-0.9 units Complement C3 143 82-167 mg/dL Complement C4 20 12-38 mg/dL Rapid Plasma Reagin Non reactive Non Reactive Influenza Type A Antigen Negative Negative Influenza Type B Antigen Negative Negative SARS-CoV-2 Antigen (Rapid) Negative NEGATIVE Urine Color Colorless Yellow Urine Clarity Turbid H Clear Urine pH 5.5 5.0-9.0 Urine Specific [place] 1.014 1.001-1.035 Urine Protein 1+ H Negative Urine Ketones Negative Negative Urine Blood 2+ H Negative /uL Urine Nitrite Negative Negative Urine Bilirubin Negative Negative Urine Urobilinogen Normal Negative mg/dL Urine Leukocyte Esterase Negative Negative /uL Urine RBC 25 0 - 4 /hpf Urine Microscopic WBC 14 H 0-5 /HPF Urine Squamous Epithelial Cells Few <5 /hpf Urine Bacteria Few H None Seen /hpf Urine Mucus Few None Seen Urine Yeast (Budding) Occasional None Seen /hpf Urine Creatinine 198.08 H 30.0-125.0 mg/dL Urine Protein/Creatinine Ratio 0.83 Urine Sodium 42 40-220 mmol/L Urine Glucose Normal Normal mg/dL Urine Total Protein 163.8 H 1-14 mg/dL Uric Acid 13.0 H 3.1-7.8 mg/dL Phosphorus Level 12.7 H 2.4-5.1 mg/dL Troponin I High Sensitivity 68 *H </=34 ng/L Test 07/05/24 04:19 07/05/24 04:14 07/05/24 03:00 07/05/24 00:44 Range/Units B-Type Natriuretic Peptide 56.60 0-100 pg/mL Vitamin D 25-Hydroxy 34.0 30.0-100 ng/mL Parathyroid Hormone (Intact) 298.7 H 18.4-80.1 pg/mL Hepatitis B Surface Antigen Negative Negative Hepatitis C Antibody Negative Negative Lipase 69 H 12-53 U/L Urine Hyaline Casts Mod 0 - 2 /lpf Urine Granular Casts Mod 0 /lpf Blood Gas Specimen Type Arterial Blood Gas Sample Site Right radial Blood Gas Patient Temperature 37.0 Arterial Blood Date Drawn [id number] Arterial Blood pH 7.313 L 7.350-7.450 Arterial Blood Partial Pressure CO2 18.1 *L 32.0-45.0 mmHg Arterial Blood Partial Pressure O2 85.6 83.0-108.0 mmHg Arterial Blood HCO3 9.0 L 21.0-28.0 mmol/L Arterial Blood Oxygen Saturation 94.5 94.0-98.0 % Arterial Blood Base Excess -14.5 L -2.0-3.0 mmol/L Arterial Blood Oxyhemoglobin 93.8 L 94.0-98.0 % Arterial Blood Carboxyhemoglobin 0.4 L 0.5-1.5 % Arterial Blood Methemoglobin 0.3 0.0-1.5 % Connor Test Yes Blood Gas Total Hemoglobin 14.80 12.0-16.0 g/dL Blood Gas Liter Flow 2.00 Blood Gas Modality Nasal cannula FiO2 % 28.0 Blood Gas Critical Value Read Back Yes Blood Gas Notified Whom elizabeth Thomason Blood Gas Notified Time [id number] Blood Gas Notified By Records Management Specialist regan dali Test 07/05/24 00:17 Range/Units Lactic Acid Level 1.3 0.4-2.0 mmol/L Microbiology Date/Time Source Procedure Growth Status 07/05/24 12:05 Nose MRSA Screen - Final Complete 07/04/24 22:09 Blood Blood Culture - Preliminary NO GROWTH AFTER 48 HOURS OF INCUBATION. Resulted Assessment Assessment: # Possible upper GI bleeding # ASUNCION on CKD likely hemodynamically mediated/VMN # Possible NSTEMI type 2 # Hypokalemia # Hypomagnesemia # Hyperuricemia # Elevated creatinine kinase # Elevated lipase # Transaminitis Plan: - Clear liquid diet - NPO after midnight - H/H stable and FOBT positive - IV protonix 40 mg b.i.d - Scheduled for EGD tomorrow on 07/08/24 - Replenished electrolyte imbalance - Continue IV antibiotic as per primary - Will follow the patient Plan discussed with Dr. Centeno Plan discussed with: Patient, Other ASHLEY PATEL RESIDENT Jul 07, 2024 17:13
[2024-07-07] MEDS: POTASSIUM EFFERVESENT TAB 25 MEQ PO ONE (18:24)
[2024-07-08 01:00] VITALS: BP 120/88; PULSE 98; RESP 19; TEMP 98.4; O2SAT 92
--- NOTE | 2024-07-08 08:47 | ECG ---
[facility] Test Date: 2024-07-07 Test Time: 08:15:37 Pat Name: KATHLEEN MAJOR Department: ER Room: [address] [place] [address] Gender: F Speech Language Assistant: MELLISA : 1965 Requested By: NANI DISLA Order Number: [id number] Reading MD: Thad Sheridan Measurements Intervals [place] Rate: 76 P: 254 MI: 143 QRS: 53 QRSD: 88 T: 226 QT: 408 QTc: 459 Interpretive Statements Ectopic atrial rhythm Abnormal R-wave progression, early transition Nonspecific repol abnormality, diffuse leads Electronically Signed On 07-08-2024 9:26:57 PST by Thad Sheridan Please click the below link to view image of tracing.
--- NOTE | 2024-07-08 14:53 | DVHDS2 ---
Discharge Summary Date of Admission Jul 04, 2024 at 23:56 Date of Discharge: Jul 08, 2024 Admitting Diagnosis Acute renal failure Labs/Diagnostic Data: Laboratory Results Test 07/07/24 14:21 07/07/24 05:55 07/07/24 03:27 07/06/24 04:03 Potassium Level 3.3 mmol/L (3.5-5.1) Magnesium Level 1.8 mg/dL (1.6-2.6) White Blood Count 6.2 10^3/uL (4.4-10.8) Red Blood Count 3.92 10^6/uL (4.0-5.20) Hemoglobin 12.7 g/dL (12.2-16.2) Hematocrit 35.5 % (36.0-46.0) Mean Corpuscular Volume 90.6 fL (80.0-100.0) Mean Corpuscular Hemoglobin 32.4 pg (28.0-32.0) Mean Corpuscular Hemoglobin Concent 35.7 g/dL (32.0-36.0) Red Cell Distribution Width 14.4 % (11.8-14.3) Platelet Count 153 10^3/uL (140-450) Mean Platelet Volume 9.7 fL (6.9-10.8) Neutrophils (%) (Auto) 89.0 % (37.0-80.0) Lymphocytes (%) (Auto) 6.8 % (10.0-50.0) Monocytes (%) (Auto) 3.9 % (0.0-12.0) Eosinophils (%) (Auto) 0.1 % (0.0-7.0) Basophils (%) (Auto) 0.2 % (0.0-2.0) Neutrophils # (Auto) 5.5 10 ^3/uL (1.6-8.6) Lymphocytes # (Auto) 0.4 10 ^3/uL (0.4-5.4) Monocytes # (Auto) 0.2 10 ^3/uL (0-1.3) Eosinophils # (Auto) 0 10 ^3/uL (0-0.8) Basophils # (Auto) 0 10 ^3/uL (0-0.2) Nucleated Red Blood Cells 0.1 % Sodium Level 144 mmol/L (136-145) Chloride Level 107 mmol/L (98-107) Carbon Dioxide Level 27 mmol/L (20-31) Anion Gap 10 (5-15) Blood Urea Nitrogen 47 mg/dL (9-23) Creatinine 1.51 mg/dL (0.550-1.02) Glomerular Filtration Rate Calc 39 mL/min (>90) BUN/Creatinine Ratio 31.1 (10.0-20.0) Serum Glucose 149 mg/dL (74-106) Calcium Level 8.1 mg/dL (8.7-10.4) Total Bilirubin 0.5 mg/dL (0.2-1.0) Aspartate Amino Transferase (AST) 61 U/L (13-40) Alanine Aminotransferase (ALT) 30 U/L (7-40) Alkaline Phosphatase 62 U/L (46-116) Creatine Kinase 504 U/L (34-145) Total Protein 6.0 g/dL (5.7-8.2) Albumin 3.8 g/dL (3.2-4.8) Stool Occult Blood Positive (Negative) Stool Occult Blood Sample #3 (Negative) Prothrombin Time 10.6 sec (9.3-11.8) Prothrombin Time INR 1.00 (0.9-1.15) Activated Partial Thromboplast Time 28.5 SEC (24.5-34.5) Test 07/05/24 13:41 07/05/24 12:05 07/05/24 10:30 07/05/24 06:12 Anti-Nuclear Antibody Screen Negative (Negative) Cytoplasmic ANCA (c-ANCA) Antibody <1:20 titer (Neg:<1:20) Anti-Proteinase 3 (c-ANCA) <0.2 units (0.0-0.9) Atypical p-ANCA <1:20 titer (Neg:<1:20) Perinuclear ANCA (p-ANCA) Antibody <1:20 titer (Neg:<1:20) Myeloperoxidase Antibody <0.2 units (0.0-0.9) Complement C3 143 mg/dL (82-167) Complement C4 20 mg/dL (12-38) Rapid Plasma Reagin Non reactive (Non Reactive) Influenza Type A Antigen Negative (Negative) Influenza Type B Antigen Negative (Negative) SARS-CoV-2 Antigen (Rapid) Negative (NEGATIVE) Urine Color Colorless (Yellow) Urine Clarity Turbid (Clear) Urine pH 5.5 (5.0-9.0) Urine Specific [place] 1.014 (1.001-1.035) Urine Protein 1+ (Negative) Urine Ketones Negative (Negative) Urine Blood 2+ /uL (Negative) Urine Nitrite Negative (Negative) Urine Bilirubin Negative (Negative) Urine Urobilinogen Normal mg/dL (Negative) Urine Leukocyte Esterase Negative /uL (Negative) Urine RBC 25 /hpf (0 - 4) Urine Microscopic WBC 14 /HPF (0-5) Urine Squamous Epithelial Cells Few /hpf (<5) Urine Bacteria Few /hpf (None Seen) Urine Mucus Few (None Seen) Urine Yeast (Budding) Occasional /hpf (None Urine Creatinine 198.08 mg/dL (30.0-125.0) Urine Protein/Creatinine Ratio 0.83 Urine Sodium 42 mmol/L (40-220) Urine Glucose Normal mg/dL (Normal) Urine Total Protein 163.8 mg/dL (1-14) Uric Acid 13.0 mg/dL (3.1-7.8) Phosphorus Level 12.7 mg/dL (2.4-5.1) Troponin I High Sensitivity 68 ng/L (</=34) Test 07/05/24 04:19 07/05/24 04:14 07/05/24 03:00 07/05/24 00:44 B-Type Natriuretic Peptide 56.60 pg/mL (0-100) Vitamin D 25-Hydroxy 34.0 ng/mL (30.0-100) Parathyroid Hormone (Intact) 298.7 pg/mL (18.4-80.1) Hepatitis B Surface Antigen Negative (Negative) Hepatitis C Antibody Negative (Negative) Lipase 69 U/L (12-53) Urine Hyaline Casts Mod /lpf (0 - 2) Urine Granular Casts Mod /lpf (0) Blood Gas Specimen Type Arterial Blood Gas Sample Site Right radial Blood Gas Patient Temperature 37.0 Arterial Blood Date Drawn [id number] Arterial Blood pH 7.313 (7.350-7.450) Arterial Blood Partial Pressure CO2 18.1 mmHg (32.0-45.0) Arterial Blood Partial Pressure O2 85.6 mmHg (83.0-108.0) Arterial Blood HCO3 9.0 mmol/L (21.0-28.0) Arterial Blood Oxygen Saturation 94.5 % (94.0-98.0) Arterial Blood Base Excess -14.5 mmol/L (-2.0-3.0) Arterial Blood Oxyhemoglobin 93.8 % (94.0-98.0) Arterial Blood Carboxyhemoglobin 0.4 % (0.5-1.5) Arterial Blood Methemoglobin 0.3 % (0.0-1.5) Connor Test Yes Blood Gas Total Hemoglobin 14.80 g/dL (12.0-16.0) Blood Gas Liter Flow 2.00 Blood Gas Modality Nasal cannula FiO2 % 28.0 Blood Gas Critical Value Read Back Yes Blood Gas Notified Whom elizabeth Thomason Blood Gas Notified Time [id number] Blood Gas Notified By Dermatology Teacher regan dali Test 07/05/24 00:17 Lactic Acid Level 1.3 mmol/L (0.4-2.0) Other Laboratory Tests 07/07/24 14:21 07/07/24 05:55 Brief Hx & Hospital Course: History of Present Illness 59-year-old female presents evaluation a one-week history of nausea vomiting and diarrhea. Patient reports worsening fatigue with generalized weakness she also reports decreased urine output. On arrival patient's blood pressure was in the 70s. Reports generalized body aches as well. No chest pain or palpitations. No shortness a breath. Course of hospitalization: Patient was given aggressive IV hydration. According to the patient she states that she was had nausea and vomiting for approximately seven days as well as being anuric for seven days. Patient's urine output improved. Patient was given adequate potassium replacement given hypokalemia from sodium bicarbonate drip. Patient had noted positive fecal occult blood. GI consultation was obtained. Patient was scheduled for EGD today, but patient was slight leave AMA because she was made NPO. Consults/Reason for consult Gastroenterology: Positive FOBT Condition at Discharge: Undetermined Final Diagnosis/Problems List Acute kidney injury, prerenal, via men Rhabdomyolysis Discharge Disposition: AMA 36 Discharge Statement: "Patient was advised to return to the ER or call 911 if any headaches, dizziness, shortness of breath, chest pain, abdominal pain, bleeding, fevers, or worsening of medical condition. Patient was counseled about treatment plan, medications, possible side effects, patientverbalized understanding. All questions were answered to the best of my ability. This discharge took greater then 30 minutes in planning, reviewing documentation, counseling the patient, and discussing with other team members." ASSESSMENT ASSESSMENT Assessment Date of Service: Jul 08, 2024 Billing Provider: NANI DISLA NP Common Visit Codes: [id number] DISCH DAY <30MIN NANI DISLA NP Jul 08, 2024 14:53
== END 2024-07-08 05:20 | disposition left against medical advice (07) | DRG 351 ==
LOC: ER 21:38 → EDBD 21:38 → OVERFLOW 23:56 → EAST 07-07 15:40
PROVIDERS: ADMIT Nurse Practitioner; ATTEND Nurse Practitioner Acute Care
DX: M62.82 Rhabdomyolysis (principal); N17.0 Acute kidney failure with tubular necrosis; R57.1 Hypovolemic shock; I21.A1 Myocardial infarction type 2; E87.20 Acidosis, unspecified; Z20.822 Contact with and (suspected) exposure to COVID-19; E86.0 Dehydration; Z68.41 Body mass index [BMI] 40.0-44.9, adult; N18.9 Chronic kidney disease, unspecified; G89.4 Chronic pain syndrome; F32.A Depression, unspecified; R74.01 Elevation of levels of liver transaminase levels; E78.5 Hyperlipidemia, unspecified; F12.10 Cannabis abuse, uncomplicated; E83.42 Hypomagnesemia; I12.9 Hypertensive chronic kidney disease with stage 1 through stage 4 chronic kidney disease, or unspecified chronic kidney disease; E79.0 Hyperuricemia without signs of inflammatory arthritis and tophaceous disease; E66.9 Obesity, unspecified; E87.6 Hypokalemia; Z88.2 Allergy status to sulfonamides; Z79.899 Other long term (current) drug therapy
CPT/HCPCS: 36415; 36600; 71045; 74176; 76775; 80053; 81001; 82270; 82306; 82550; 82570; 82805; 83520; 83605; 83690; 83735; 83880; 83970; 84100; 84132; 84156; 84300; 84484; 84550; 85025; 85610; 85730; 86038; 86160; 86256; 86592; 86803; 87040; 87081; 87340; 87426; 87804; 93005; 93306; 96365; G0378; J2405; J2470; J3480; J3490